=== PATIENT | male | born 1940 | race Caucasian/White ===

== ENCOUNTER 2017-07-14 20:32 | Inpatient (IN) | payer MEDICARE, MEDICAID ==
[~2017-07-14] VITALS: Ht 182.9 cm; Wt 81.6 kg
[~2017-07-14 20:32] MED LIST: ACETAMINOPHEN650 M2 ORAL; ARICEPT5 MG ORAL; ASCORBIC ACID500 MG ORAL; ATARAX25 MG ORAL; ATORVASTATIN CA10 MG ORAL; BISACODYL5 MG RECTAL; CLOBETASOL EMOL15 GM TP; COLACE250 MG ORAL; DEMECLOCYCLINE300 MG PO; DEPAKOTE ER250 MG ORAL; DEPAKOTE ER500 MG ORAL; DOCUSATE SODIU100 MG ORAL; ELIMITE 5% CREA60 GM TOPIC; HIBICLENS118 ML TP; HYDROCHLOROTH12.5 M2 ORAL; IBUPROFEN600 MG ORAL; KLONOPIN1 MG ORAL; MILK OF MA400 MG/51 ORAL; MULTIVITAMINS1 EAC2 ORAL; MULTIVITAMINS1 EAC8 ORAL; MYLANTA30 M1 GT; OS-CAL1250 MG GT; RESTORIL7.5 MG ORAL; SERTRALINE HCL25 MG ORAL; STROMECTOL3 MG ORAL; SYNTHROID50 MCG ORAL; VENTOLIN HFA18 GM INH; VITAMIN C500 M1 ORAL
[2017-07-14 20:35] VITALS: BP 112/62
[2017-07-14] MEDS ORDERED: Vancomycin 1 GM in NS 275 ML IV ONE (21:00)
[2017-07-14] MEDS ORDERED: LORazepam Inj 2mg/ml 1ml IV PRN (21:30)
[2017-07-14] MEDS ORDERED: Miralax 17gm pkt ORAL PRN (21:30)
[2017-07-14] MEDS ORDERED: Mylanta II UD 30ml ORAL PRN (21:30)
[2017-07-14] MEDS ORDERED: Zolpidem 5mg tab ORAL PRN (21:30)
[2017-07-14] MEDS ORDERED: Vancomycin 1gm inj IVPB ONE (21:34)
[2017-07-14 21:43] LABS: BASOPHILS % (AUTO) 0.9 % (0.0-2.0); EOSINOPHILS % (AUTO) 2.2 % (0.0-3.0); LYMPHOCYTES % (AUTO) 16.3 % (20.0-45.0); MEAN CORPUSCULAR HGB CONC 33.4 G/DL (32.0-36.0); MEAN CORPUSCULAR VOLUME 90 FL (80-99); MEAN PLATELET VOLUME 5.9 FL (6.5-10.1); MONOCYTES % (AUTO) 10.6 % (1.0-10.0); PLATELET COUNT 275 K/UL (150-450); RED BLOOD COUNT 4.59 M/UL (4.70-6.10); RED CELL DISTRIBUTION WIDTH 13.1 % (11.6-14.8); WHITE BLOOD COUNT 8.5 K/UL (4.8-10.8)
[2017-07-14] MEDS ORDERED: VITAMIN C250 MG ORAL (21:44)
[2017-07-14] MEDS ORDERED: VITAMIN C500 M1 ORAL (21:44)
[2017-07-14] MEDS ORDERED: RISPERDAL1 MG PO (21:44)
[2017-07-14 21:49] LABS: ANION GAP 9 mmol/L (5-15); CALCIUM 8.7 MG/DL (8.5-10.1); CARBON DIOXIDE 25 MMOL/L (21-32); CHLORIDE 104 MMOL/L (98-107); POTASSIUM 3.9 MMOL/L (3.5-5.1); SODIUM 138 MMOL/L (136-145)
[2017-07-14 21:54] LABS: ALANINE AMINOTRANSFERASE 32 U/L (12-78); ALBUMIN/GLOBULIN RATIO 0.9 (1.0-2.7); ASPARTATE AMINO TRANSFERASE 23 U/L (15-37); TOTAL PROTEIN 6.7 G/DL (6.4-8.2)
[2017-07-14 22:35] VITALS: BP 115/60
--- NOTE | 2017-07-14 23:17 | Emergency Room Report ---
History of Present Illness General Chief Complaint: Wound Recheck/Suture Removal Source: Patient, PMD Present Illness HPI Patient sent in from a group home facility. The patient has a history of a nonhealing surgical wound on the left pelvis. He was sent him by the primary care physician for concerned that this needs a surgical revision. The patient does have ongoing pain there. There is no fever or chills. There is no nausea or vomiting. There is no chest pain or shortness of breath. There are no other complaints. Allergies: Coded Allergies: DIVALPROEX SODIUM (Verified Allergy, Severe, rash , 05/30/14) all over body ACETAMINOPHEN (Unverified Allergy, Unknown, 07/14/17) ASPIRIN (Unverified Allergy, Unknown, 07/14/17) HALOPERIDOL (Unverified Allergy, Unknown, 07/14/17) Patient History Past Medical History: see triage record, HTN, psych hx - schizophrenia, other - Hypothyroid Social History: Denies: smoking, alcohol use, drug use Reviewed Nursing Documentation: PMH: Agreed, PSxH: Agreed Nursing Documentation-PMH Hx Pacemaker: No Hx Asthma: No Hx COPD: Yes Hx Diabetes: No Hx Cancer: No Hx Gastrointestinal Problems: No Hx Dialysis: No Hx Neurological Problems: No Hx Cerebrovascular Accident: No Hx Dementia: Yes Hx Seizures: No Review of Systems All Other Systems: negative except mentioned in HPI Physical Exam Vital Signs Date Time Temp Pulse Resp B/P (MAP) Pulse Ox O2 Delivery O2 Flow Rate FiO2 07/14/17 20:26 98.2 72 16 112/62 98 Room Air Sp02 EP Interpretation: reviewed, normal General Appearance: no apparent distress, alert, GCS 15, non-toxic Head: normocephalic, atraumatic Eyes: bilateral eye normal inspection, bilateral eye PERRL ENT: hearing grossly normal, normal pharynx, no angioedema, normal voice Neck: full range of motion, supple/symm/no masses Respiratory: chest non-tender, lungs clear, normal breath sounds, speaking full sentences Cardiovascular #1: regular rate, rhythm, no edema Gastrointestinal: normal bowel sounds, non tender, soft, non-distended, no guarding, no rebound, other - Non-healing chronic wound. Rectal: deferred Musculoskeletal: back normal, gait/station normal, normal range of motion, non- tender Neurologic: alert, responsive, motor strength/tone normal, sensory intact, speech normal Psychiatric: mood/affect normal, no suicidal/homicidal ideation Skin: warm/dry, other - See GI exam Medical Decision Making Diagnostic Impression: Primary Impression: Non-healing wound ER Course This patient presents with a nonhealing post surgical wound. He is here for a surgical consultation and revision. He was given broad-spectrum antibiotics in the emergency department. He was admitted to the medical surgical floor. Laboratory Tests Test 07/14/17 21:10 White Blood Count 8.5 K/UL (4.8-10.8) Red Blood Count 4.59 M/UL (4.70-6.10) L Hemoglobin 13.8 G/DL (14.2-18.0) L Hematocrit 41.1 % (42.0-52.0) L Mean Corpuscular Volume 90 FL (80-99) Mean Corpuscular Hemoglobin 30.0 PG (27.0-31.0) Mean Corpuscular Hemoglobin Concent 33.4 G/DL (32.0-36.0) Red Cell Distribution Width 13.1 % (11.6-14.8) Platelet Count 275 K/UL (150-450) Mean Platelet Volume 5.9 FL (6.5-10.1) L Neutrophils (%) (Auto) 70.0 % (45.0-75.0) Lymphocytes (%) (Auto) 16.3 % (20.0-45.0) L Monocytes (%) (Auto) 10.6 % (1.0-10.0) H Eosinophils (%) (Auto) 2.2 % (0.0-3.0) Basophils (%) (Auto) 0.9 % (0.0-2.0) Sodium Level 138 MMOL/L (136-145) Potassium Level 3.9 MMOL/L (3.5-5.1) Chloride Level 104 MMOL/L (98-107) Carbon Dioxide Level 25 MMOL/L (21-32) Anion Gap 9 mmol/L (5-15) Blood Urea Nitrogen 18 mg/dL (7-18) Creatinine 1.0 MG/DL (0.55-1.30) Estimate Glomerular Filtration Rate mL/min (>60) Glucose Level 119 MG/DL (74-106) H Lactic Acid Level 1.20 mmol/L (0.66-2.22) Calcium Level 8.7 MG/DL (8.5-10.1) Total Bilirubin 0.2 MG/DL (0.2-1.0) Aspartate Amino Transferase (AST) 23 U/L (15-37) Alanine Aminotransferase (ALT) 32 U/L (12-78) Alkaline Phosphatase 118 U/L (46-116) H Total Creatine Kinase 182 U/L (26-308) Total Protein 6.7 G/DL (6.4-8.2) Albumin 3.2 G/DL (3.4-5.0) L Globulin 3.5 g/dL Albumin/Globulin Ratio 0.9 (1.0-2.7) L Rhythm Strip Diag. Results EP Interpretation: yes Rate: 70's Rhythm: NSR, no PVC's, no ectopy Last Vital Signs Date Time Temp Pulse Resp B/P (MAP) Pulse Ox O2 Delivery O2 Flow Rate FiO2 07/14/17 22:35 98.2 78 18 115/60 98 Room Air Disposition: ADMITTED INPATIENT Condition: Stable Referrals: LENA WHEELER (PCP) JACIEL LEIGH D.O. Jul 14, 2017 23:17
[2017-07-14 23:56] VITALS: BP 129/70
[2017-07-15 04:00] VITALS: BP 112/74
[2017-07-15 07:11] LABS: BASOPHILS % (AUTO) 1.1 % (0.0-2.0); EOSINOPHILS % (AUTO) 1.7 % (0.0-3.0); LYMPHOCYTES % (AUTO) 11.2 % (20.0-45.0); MEAN CORPUSCULAR HEMOGLOBIN 30.4 PG (27.0-31.0); MEAN CORPUSCULAR HGB CONC 33.4 G/DL (32.0-36.0); MEAN CORPUSCULAR VOLUME 91 FL (80-99); MEAN PLATELET VOLUME 5.8 FL (6.5-10.1); MONOCYTES % (AUTO) 8.1 % (1.0-10.0); NEUTROPHILS % (AUTO) 77.9 % (45.0-75.0); PLATELET COUNT 264 K/UL (150-450); RED BLOOD COUNT 4.51 M/UL (4.70-6.10); RED CELL DISTRIBUTION WIDTH 13.5 % (11.6-14.8); WHITE BLOOD COUNT 9.3 K/UL (4.8-10.8)
[2017-07-15 08:06] LABS: ALANINE AMINOTRANSFERASE 33 U/L (12-78); ALBUMIN/GLOBULIN RATIO 0.9 (1.0-2.7); ANION GAP 7 mmol/L (5-15); ASPARTATE AMINO TRANSFERASE 23 U/L (15-37); CALCIUM 8.7 MG/DL (8.5-10.1); CARBON DIOXIDE 27 MMOL/L (21-32); CHLORIDE 104 MMOL/L (98-107); CHOLESTEROL 167 MG/DL (< 200); CHOLESTEROL/HDL RATIO 3.7 (3.3-4.4); CREATININE 0.9 MG/DL (0.55-1.30); POTASSIUM 3.9 MMOL/L (3.5-5.1); SODIUM 138 MMOL/L (136-145); TOTAL PROTEIN 6.7 G/DL (6.4-8.2)
[2017-07-15 08:15] VITALS: BP 121/71
[2017-07-15] MEDS: Sertraline 50mg tab ORAL SCH (08:15)
[2017-07-15] MEDS: oxyCODONE 5mg IR tab ORAL PRN ×2 (09:09→20:49)
[2017-07-15 12:12] VITALS: BP 129/73
[2017-07-15 16:00] VITALS: BP 121/75
--- NOTE | 2017-07-15 16:43 | Consultation ---
History of Present Illness General Date patient seen: Jul 15, 2017 Chief Complaint: Wound Recheck/Suture Removal Referring physician: Dr. Miller Reason for Consultation: Inpatient manageemnt Present Illness HPI 77 year old male with hx of COPD, Dementia, sent in from a care home facility for evaluation of a nonhealing surgical wound on the left groin. He had inaguinal hernia repair many years ago and the surgical site opened up a few months ago and the wound is not healing . Pt is admitted for surgical evaluation and possible closure of the wound. Allergies: Coded Allergies: DIVALPROEX SODIUM (Verified Allergy, Severe, rash , 05/30/14) all over body ACETAMINOPHEN (Unverified Allergy, Unknown, 07/14/17) ASPIRIN (Unverified Allergy, Unknown, 07/14/17) HALOPERIDOL (Unverified Allergy, Unknown, 07/14/17) Medication History Scheduled Al Hydroxide/mg Hydroxide (Mag-Al Liquid), 30 ML GT EVERY 4 HOURS, (Reported) Ascorbic Acid* (Vitamin C*), 500 MG ORAL DAILY, (Reported) Ascorbic Acid* (Vitamin C*), 250 MG ORAL DAILY, (Reported) Ascorbic Acid* (Vitamin C*), 500 MG ORAL DAILY, (Reported) Atorvastatin Calcium* (Lipitor*), 10 MG ORAL BEDTIME, (Reported) Docusate Sodium* (Docusate Sodium*), 100 MG ORAL BID, (Reported) Donepezil Hcl* (Aricept*), 5 MG ORAL BEDTIME, (Reported) Levothyroxine Sodium (Synthroid), 50 MCG ORAL DAILY, (Reported) Magnesium Hydroxide* (Milk Of Magnesia*), 30 ML ORAL DAILY, (Reported) Multivitamins* (Multivitamins*), 1 TAB ORAL DAILY, (Reported) Risperidone* (Risperdal*), 1 MG PO BID, (Reported) Sertraline Hcl* (Sertraline Hcl*), 25 MG ORAL DAILY, (Reported) Scheduled PRN Acetaminophen (Acetaminophen 8 Hour), 650 MG ORAL EVERY 4 HOURS PRN for Mild Pain/Temp > 100.5, (Reported) Bisacodyl* (Dulcolax*), 10 MG RECTAL DAILY PRN for Constipation, (Reported) Hydroxyzine HCl (Hydroxyzine HCl), 25 MG ORAL DAILY PRN for Itching, (Reported) Patient History Healthcare decision maker Resuscitation status Full Code Advanced Directive on File Past Medical/Surgical History Past Medical/Surgical History: (1) Fatty liver (2) Anemia (3) Hypothyroidism (4) Psychiatric disorder Review of Systems All Other Systems: negative except mentioned in HPI Physical Exam General Appearance: WD/WN Lines, tubes and drains: peripheral HEENT: normocephalic Neck: non-tender, normal alignment Respiratory/Chest: chest wall non-tender, lungs clear Cardiovascular/Chest: normal peripheral pulses, normal rate Abdomen: normal bowel sounds Genitourinary/Rectal: normal genital exam Extremities: normal range of motion Skin Exam: normal pigmentation Last 24 Hour Vital Signs Date Time Temp Pulse Resp B/P (MAP) Pulse Ox O2 Delivery O2 Flow Rate FiO2 07/15/17 16:00 97.7 68 18 121/75 97 Room Air 07/15/17 12:12 97.4 59 20 129/73 97 Room Air 07/15/17 08:15 98.1 73 20 121/71 97 Room Air 07/15/17 04:00 Room Air 07/15/17 04:00 97.0 65 18 112/74 98 Room Air 07/14/17 23:56 98.2 88 15 129/70 99 Room Air 07/14/17 23:56 98.2 88 15 129/70 99 Room Air 07/14/17 22:35 98.2 78 18 115/60 98 Room Air 07/14/17 20:35 98.2 72 19 112/62 99 Room Air 07/14/17 20:26 98.2 72 16 112/62 98 Room Air Intake and Output 07/15/17 07/16/17 19:00 07:00 Intake Total 480 ml Output Total 300 ml Balance 180 ml Intake Oral 480 ml Output Urine Total 300 ml # Voids 1 Laboratory Tests Test 07/14/17 21:10 07/15/17 04:30 White Blood Count 8.5 K/UL (4.8-10.8) 9.3 K/UL (4.8-10.8) Red Blood Count 4.59 M/UL (4.70-6.10) L 4.51 M/UL (4.70-6.10) L Hemoglobin 13.8 G/DL (14.2-18.0) L 13.7 G/DL (14.2-18.0) L Hematocrit 41.1 % (42.0-52.0) L 41.0 % (42.0-52.0) L Mean Corpuscular Volume 90 FL (80-99) 91 FL (80-99) Mean Corpuscular Hemoglobin 30.0 PG (27.0-31.0) 30.4 PG (27.0-31.0) Mean Corpuscular Hemoglobin Concent 33.4 G/DL (32.0-36.0) 33.4 G/DL (32.0-36.0) Red Cell Distribution Width 13.1 % (11.6-14.8) 13.5 % (11.6-14.8) Platelet Count 275 K/UL (150-450) 264 K/UL (150-450) Mean Platelet Volume 5.9 FL (6.5-10.1) L 5.8 FL (6.5-10.1) L Neutrophils (%) (Auto) 70.0 % (45.0-75.0) 77.9 % (45.0-75.0) H Lymphocytes (%) (Auto) 16.3 % (20.0-45.0) L 11.2 % (20.0-45.0) L Monocytes (%) (Auto) 10.6 % (1.0-10.0) H 8.1 % (1.0-10.0) Eosinophils (%) (Auto) 2.2 % (0.0-3.0) 1.7 % (0.0-3.0) Basophils (%) (Auto) 0.9 % (0.0-2.0) 1.1 % (0.0-2.0) Sodium Level 138 MMOL/L (136-145) 138 MMOL/L (136-145) Potassium Level 3.9 MMOL/L (3.5-5.1) 3.9 MMOL/L (3.5-5.1) Chloride Level 104 MMOL/L (98-107) 104 MMOL/L (98-107) Carbon Dioxide Level 25 MMOL/L (21-32) 27 MMOL/L (21-32) Anion Gap 9 mmol/L (5-15) 7 mmol/L (5-15) Blood Urea Nitrogen 18 mg/dL (7-18) 15 mg/dL (7-18) Creatinine 1.0 MG/DL (0.55-1.30) 0.9 MG/DL (0.55-1.30) Estimat Glomerular Filtration Rate mL/min (>60) mL/min (>60) Glucose Level 119 MG/DL (74-106) H 98 MG/DL (74-106) Lactic Acid Level 1.20 mmol/L (0.66-2.22) Calcium Level 8.7 MG/DL (8.5-10.1) 8.7 MG/DL (8.5-10.1) Total Bilirubin 0.2 MG/DL (0.2-1.0) 0.4 MG/DL (0.2-1.0) Aspartate Amino Transf (AST/SGOT) 23 U/L (15-37) 23 U/L (15-37) Alanine Aminotransferase (ALT/SGPT) 32 U/L (12-78) 33 U/L (12-78) Alkaline Phosphatase 118 U/L (46-116) H 117 U/L (46-116) H Total Creatine Kinase 182 U/L (26-308) Total Protein 6.7 G/DL (6.4-8.2) 6.7 G/DL (6.4-8.2) Albumin 3.2 G/DL (3.4-5.0) L 3.2 G/DL (3.4-5.0) L Globulin 3.5 g/dL 3.5 g/dL Albumin/Globulin Ratio 0.9 (1.0-2.7) L 0.9 (1.0-2.7) L Triglycerides Level 92 MG/DL (30-150) Cholesterol Level 167 MG/DL (< 200) LDL Cholesterol 108 mg/dL (<100) H HDL Cholesterol 45 MG/DL (40-60) Cholesterol/HDL Ratio 3.7 (3.3-4.4) Thyroid Stimulating Hormone (TSH) 3.780 uiU/mL (0.358-3.740) Height (Feet): 6 Height (Inches): 0.00 Weight (Pounds): 180 Medications Current Medications Medications (Trade) Dose Ordered Sig/Darren Route PRN Reason Start Time Stop Time Status Last Admin Dose Admin Al Hydroxide/Mg Hydroxide (Mylanta II) 30 ml Q6H PRN ORAL dyspepsia 07/14/17 21:30 08/13/17 21:29 Atorvastatin Calcium (Lipitor) 10 mg BEDTIME ORAL 07/15/17 21:00 08/14/17 20:59 Dextrose (Dextrose 50%) STAT PRN IV Hypoglycemia 07/14/17 21:30 08/13/17 21:29 Donepezil HCl (Aricept) 5 mg BEDTIME ORAL 07/15/17 21:00 08/14/17 20:59 Levothyroxine Sodium (Synthroid) 50 mcg ACBREAKFAST ORAL 07/15/17 06:30 08/14/17 06:29 07/15/17 05:48 Lorazepam (Ativan 2mg/ml 1ml) 0.5 mg Q4H PRN IV For Anxiety 07/14/17 21:30 07/21/17 21:29 Morphine Sulfate (Morphine Sulfate) 1 mg Q4H PRN IVP For Pain 07/14/17 21:30 07/21/17 21:29 Ondansetron HCl (Zofran) 4 mg Q6H PRN IVP Nausea & Vomiting 07/14/17 21:30 08/13/17 21:29 Oxycodone HCl (Roxicodone) 5 mg EVERY 6 HOURS PRN ORAL Moderate Pain (Pain Scale 4-6) 07/15/17 07:00 07/22/17 06:59 07/15/17 09:09 Polyethylene Glycol (Miralax) 17 gm HSPRN PRN ORAL Constipation 07/14/17 21:30 08/13/17 21:29 Sertraline HCl (Zoloft) 25 mg DAILY ORAL 07/15/17 09:00 08/14/17 08:59 07/15/17 08:15 Vancomycin HCl (Vanco rx to dose) 1 ea DAILY PRN MISC Per rx protocol 07/15/17 13:30 08/14/17 13:29 Vancomycin HCl/ Dextrose 250 ml @ 166.667 mls/hr Q12H IVPB 07/15/17 15:00 07/20/17 14:59 Zolpidem Tartrate (Ambien) 5 mg HSPRN PRN ORAL Insomnia 07/14/17 21:30 07/21/17 21:29 Assessment/Plan Problem List: (1) Cellulitis ICD Codes: L03.90 - Cellulitis, unspecified SNOMED: 878617645 (2) Anemia ICD Codes: D64.9 - Anemia SNOMED: 350697282 (3) Non-healing wound SNOMED: 559087086 (4) Psychiatric disorder ICD Codes: F99 - Psychiatric disorder SNOMED: 28713404 (5) Hypothyroidism ICD Codes: E03.9 - Hypothyroidism SNOMED: 96625660 Assessment/Plan wound care Iv abx surgical evaluation, Dr. Washburn called dvt prophylaxis ZACKARY SÁNCHEZ Jul 15, 2017 16:43
--- NOTE | 2017-07-15 16:45 | Cardiology Report ---
APPROVED REPORT EKG Measurement Heart [id number] [place] [id number] Normal sinus rhythm Normal ECG
[2017-07-15] MEDS: Vancomycin 1250mg/D5W 250ml IVPB SCH (17:57)
--- NOTE | 2017-07-15 17:59 | General Progress Note ---
Progress Note Progress Note Surgery: full note to follow. 77M with multiple medical comorbidities presented with worsening left inguinal wound with drainage and cellulitis. patient had left inguinal hernia repair with mesh 1 year ago. 3 months ago noted opening of the surgical wound and drainage. since has been monitored and feels as if it is getting deeper even though the skin site is same size if not smaller. drainage constant requiring dressings. has surrounding cellulitis. states tender and intermittent discomfort. given above I am concerned that maybe he has an underlying infected mesh. he has okay nutrition and should have a simple surgical wound. this seems more complex and likely something underlying such as infected mesh. will order CT pelvis with IV contrast to evaluate area and tissues surrounding mesh and defect. if only superficial and slow healing may just need a simple debridement and closure. if mesh is indeed infected will require more mesh excision and complex repair. thank you for this consult. will follow. Dorian Washburn Jul 15, 2017 17:59
--- NOTE | 2017-07-15 18:00 | History and Physical Report ---
DATE OF ADMISSION: 07/14/2017 TIME SEEN: 07/15/2017, approximate time is 1 p.m. ATTENDING PHYSICIAN: Anthony Miller D.O. CONSULTANTS: 1. Merary Partida M.D. 2. Dr. Carlisle. 3. Dianna Macedo M.D. 4. We will obtain a surgery consult shortly. BRIEF HISTORY: This is a 77-year-old male from [facility], who presented with history of decubitus in the left inguinal area. The patient was diagnosed with the above, admitted to medical floor for further treatment. Currently calm in bed. No complaint. REVIEW OF SYSTEMS: No chest pain. No shortness of breath. No nausea, vomiting, or diarrhea. PAST MEDICAL HISTORY: Hypertension, anxiety, dementia, COPD, and decubitus ulcer. PAST SURGERY HISTORY: Left inguinal hernia. ALLERGIES: According to his chart, Tylenol, Haldol, aspirin and divalproex. MEDICATIONS: Include Lipitor, Aricept, Zoloft, oxycodone, Synthroid, morphine, MiraLAX, Zofran, Ambien, Advair, and Mylanta. SOCIAL HISTORY: Positive smoking. No alcohol. No intravenous drug abuse. FAMILY HISTORY: Noncontributory. PHYSICAL EXAMINATION: GENERAL: Calm in bed, oriented x2, in no acute distress. VITAL SIGNS: Show temperature is 97, pulse 59, respirations 20, and blood pressure 129/73. CARDIOVASCULAR: No murmur. LUNGS: Distant and clear. ABDOMEN: Bowel sounds positive. Nontender and nondistended. EXTREMITIES: No cyanosis, clubbing, or edema. Left inguinal hernia dressing clean and dry, slightly swollen. LABORATORY DATA: Labs at this time show hemoglobin 13.7, otherwise, CBC is normal. BMP shows alkaline phosphatase of 117. Albumin 3.2. TSH is 3.78. ASSESSMENT: 1. Decubitus ulcer, left inguinal area. 2. Chronic obstructive pulmonary disease. 3. Hypertension. 4. Anxiety. 5. Dementia. 6. Malnutrition. 7. Hypothyroid. PLAN: 1. Continue premedications. 2. Wound care. 3. Antibiotics per Infectious Disease. 4. OT, PT, and dietary evaluation. 5. CBC and BMP in the morning. 6. Dr. Partiad, Dr. Carlisle, Dr. Macedo, surgeon, and Dr. Amaya to consult. We will continue to follow this patient. Anthony Miller D.O. DR: LORENA JOB#: [id number] CC:
--- NOTE | 2017-07-15 18:30 | Consultation ---
DATE OF CONSULTATION: 07/15/2017 INFECTIOUS DISEASE CONSULTATION CONSULTING PHYSICIAN: Yan Ray M.D. PRIMARY ATTENDING PHYSICIAN: Anthony Miller D.O. REASON FOR CONSULT: Left inguinal wound infection. HISTORY OF PRESENT ILLNESS: This is a 77-year-old white male, who is a senior living resident admitted yesterday with nonhealing wound in the left inguinal area. The patient states that he had inguinal hernia long time ago. This year, there was something happened and the patient had reoperation. After that, he has some abscess or sinus tract in the left inguinal area that is nonhealing. Sometimes, there is discharge from the wound. The patient has no systemic symptoms like fever or chills. Has pain in the area. PAST MEDICAL HISTORY: Significant for COPD, Alzheimer dementia, hypothyroidism, diverticulosis, and compression fracture of L1 and L5. ALLERGIES: Allergic to aspirin, Tylenol, haloperidol, and valproic acid. MEDICATIONS: Atorvastatin, Aricept, Zoloft, oxycodone, levothyroxine, morphine, MiraLAX, got a dose of vancomycin in the ER, Ambien, and lorazepam. SOCIAL HISTORY: A senior living resident. Smoker, smokes 6 cigarettes a day. No history of alcohol or drug abuse recently. REVIEW OF SYSTEMS: No fever. No chills. No nausea. No vomiting. No diarrhea. Pain in the left inguinal area. Occasional discharge from the wound that sometimes is red. PHYSICAL EXAMINATION: VITAL SIGNS: Temperature 97.4, pulse 59, and blood pressure 129/73. GENERAL APPEARANCE: No acute distress. Awake, alert, and verbal. HEAD AND NECK: Has dentures. No oral lesion. HEART: S1 and S2 regular. LUNGS: Clear. ABDOMEN: Soft and nontender. There is a small wound in the left inguinal area. EXTREMITIES: Have no edema. LABORATORY DATA: WBC 9.3, hemoglobin 13.7, hematocrit 41, and platelets 264. Sodium 138, potassium 3.9, chloride 104, bicarbonate 27, BUN 15, creatinine 0.9, and glucose 98. Albumin is 3.2. IMPRESSION: Left inguinal area nonhealing wound, likely infected, may have sinus tract. The patient has chronic obstructive pulmonary disease, Alzheimer dementia, schizophrenia, and hypothyroidism. RECOMMENDATION: We will start the patient on vancomycin. We will follow up the cultures including wound culture. He needs to be evaluated by the surgeon. At the end of my exam, I thank Dr. Anthony Miller for involving me in the care of this patient. Yan Ray M.D. DR: YENI JOB#: [id number] CC:
[2017-07-15 19:55] VITALS: BP 123/68
[2017-07-15] MEDS: Donepezil 5mg Tab ORAL SCH (20:49)
[2017-07-16] VITALS: BP 116/76
[2017-07-16] MEDS: oxyCODONE 5mg IR tab ORAL PRN ×2 (02:39→10:10)
[2017-07-16] MEDS: Vancomycin 1250mg/D5W 250ml IVPB SCH ×2 (02:39→15:22)
[2017-07-16 04:00] VITALS: BP 127/75
[2017-07-16 07:06] LABS: BASOPHILS % (AUTO) 0.7 % (0.0-2.0); EOSINOPHILS % (AUTO) 2.1 % (0.0-3.0); MEAN CORPUSCULAR HEMOGLOBIN 30.3 PG (27.0-31.0); MEAN CORPUSCULAR HGB CONC 33.7 G/DL (32.0-36.0); MEAN CORPUSCULAR VOLUME 90 FL (80-99); MEAN PLATELET VOLUME 5.8 FL (6.5-10.1); MONOCYTES % (AUTO) 9.7 % (1.0-10.0); NEUTROPHILS % (AUTO) 66.5 % (45.0-75.0); PLATELET COUNT 251 K/UL (150-450); RED BLOOD COUNT 4.59 M/UL (4.70-6.10); RED CELL DISTRIBUTION WIDTH 13.5 % (11.6-14.8); WHITE BLOOD COUNT 7.8 K/UL (4.8-10.8)
[2017-07-16 08:31] VITALS: BP 135/76
--- NOTE | 2017-07-16 08:45 | Consultation ---
DATE OF CONSULTATION: 07/16/2017 HISTORY OF PRESENT ILLNESS: This is a 77-year-old male patient. He has a history of cellulitis and was admitted to [facility]. Reason for his admission is again this patient came in for cellulitis, but he also has a psychiatric history. Currently, he shelter. He is on a psychotropic medication regimen of Risperdal 1 mg p.o. b.i.d., Zoloft 25 mg daily, and Aricept 5 mg daily. assessed him at bedside. He states that he feels he is doing relatively well on that medication regimen. He has actually denied any suicidal or homicidal ideation, but he was over at [facility] and it was discovered that he had a problem in the left inguinal area. So, he came into the hospital also to get assessed for surgery. He understands that and he is able to make his own decisions. He seems to have capacity to make his own decisions at this time. MEDICAL HISTORY: Hypertension, COPD, decubitus ulcer, psychiatric history of paranoid schizophrenia, rule out dementia with psychosis and depression. ALLERGIES: Tylenol, Haldol, aspirin, and Depakote. SUBSTANCE ABUSE HISTORY: Denies drug and alcohol use. SOCIAL HISTORY: The patient lives in [facility]. Financially supported by [facility] and Medicare. MENTAL STATUS EXAMINATION: This is a 77-year-old male with psychomotor retardation. Mood is depressed. Affect guarded and restricted. Thought process is slightly disorganized, but denies any current suicidal or homicidal ideations. Insight and judgment is poor. DIAGNOSIS: Paranoid schizophrenia with acute exacerbation, rule out dementia with psychosis. PLAN: I am going to restart him on Risperdal 1 mg p.o. b.i.d. Continue Aricept 5 mg at bedtime, Zoloft 25 mg daily. He will continue to be followed by Psychiatry throughout his hospital course. Chart was reviewed and discussed with staff. The patient is seen and assessed at bedside. I would like to thank Dr. Anthony Miller for this interesting consultation. Dianna Macedo M.D. DR: KYLAH/JERARDO JOB#: [id number] CC:
[2017-07-16 08:59] LABS: ANION GAP 7 mmol/L (5-15); CALCIUM 8.7 MG/DL (8.5-10.1); CARBON DIOXIDE 26 MMOL/L (21-32); CHLORIDE 103 MMOL/L (98-107); CREATININE 0.9 MG/DL (0.55-1.30); SODIUM 136 MMOL/L (136-145)
[2017-07-16] MEDS: Sertraline 50mg tab ORAL SCH (10:08)
--- NOTE | 2017-07-16 10:46 | Wound Care Consultation ---
Wound Assessment Wound Assessment : Wound Number: 1 Wound Present on Admission: Yes New Wound: No Status Change of Wound: No Wound Location Body Site Modif: right, upper, anterior Wound Location Body Site: thigh Wound Type: scab - dry Charo Test: Does not Charo Wound Length: 1.0 Wound Width: 1.0 Percent of Wound Bed Yellow/Wh: 100 - dry Wound Drainage Amount: None Wound Drainage Odor: None/Absent Tissue Surrounding Wound: Erythemic Wound General Appearance: Asymptomatic Wound Comment #1 Dry yellow scab on right upper anterior thigh #2 Left inguinal area with open draining wound Recommendation -Local wound care per protocol -Keep clean and dry -Turn and reposition -Optimize nutrition -Offload both heels -Heel protector on both heels -Assess and f/u accordingly for any changes KINGSTON GARCIA RN Jul 16, 2017 10:46
--- NOTE | 2017-07-16 12:06 | General Progress Note ---
Assessment/Plan Problem List: (1) Decubitus ulcer ICD Codes: L89.90 - Pressure ulcer of unspecified site, unspecified stage SNOMED: 333082770 (2) COPD (chronic obstructive pulmonary disease) ICD Codes: J44.9 - Chronic obstructive pulmonary disease, unspecified SNOMED: 72278694 (3) Anxiety ICD Codes: F41.9 - Anxiety disorder, unspecified SNOMED: 87207451 (4) Malnutrition ICD Codes: E46 - Unspecified protein-calorie malnutrition SNOMED: 07612705 (5) Hypothyroid ICD Codes: E03.9 - Hypothyroidism, unspecified SNOMED: 54415476 (6) Cellulitis ICD Codes: L03.90 - Cellulitis, unspecified SNOMED: 108092737 (7) Weakness ICD Codes: R53.1 - Weakness SNOMED: 58688607 (8) HTN (hypertension) ICD Codes: I10 - HTN (hypertension) SNOMED: 15780210 Status: stable, progressing, tolerating diet Assessment/Plan wound care abx sx f/u cbc bmp am Subjective Constitutional: Reports: weakness Allergies: Coded Allergies: DIVALPROEX SODIUM (Verified Allergy, Severe, rash , 05/30/14) all over body ACETAMINOPHEN (Unverified Allergy, Unknown, 07/14/17) ASPIRIN (Unverified Allergy, Unknown, 07/14/17) HALOPERIDOL (Unverified Allergy, Unknown, 07/14/17) All Systems: reviewed and negative except above Subjective sl left inguinal pian Objective Last 24 Hour Vital Signs Date Time Temp Pulse Resp B/P (MAP) Pulse Ox O2 Delivery O2 Flow Rate FiO2 07/16/17 08:31 97.8 61 20 135/76 97 07/16/17 04:00 98.4 62 18 127/75 96 Room Air 07/16/17 04:00 96 Room Air 07/16/17 00:00 96 Room Air 07/16/17 00:00 97.3 76 18 116/76 96 07/15/17 20:00 Room Air 07/15/17 19:55 97.5 69 20 123/68 97 Room Air 07/15/17 16:00 97.7 68 18 121/75 97 Room Air 07/15/17 12:12 97.4 59 20 129/73 97 Room Air Laboratory Tests 07/16/17 04:40: White Blood Count 7.8, Red Blood Count 4.59L, Hemoglobin 13.9L, Hematocrit 41.2L , Mean Corpuscular Volume 90, Mean Corpuscular Hemoglobin 30.3, Mean Corpuscular Hemoglobin Concent 33.7, Red Cell Distribution Width 13.5, Platelet Count 251, Mean Platelet Volume 5.8L, Neutrophils (%) (Auto) 66.5, Lymphocytes ( %) (Auto) 21.0, Monocytes (%) (Auto) 9.7, Eosinophils (%) (Auto) 2.1, Basophils (%) (Auto) 0.7, Sodium Level 136, Potassium Level 4.0, Chloride Level 103, Carbon Dioxide Level 26, Anion Gap 7, Blood Urea Nitrogen 14, Creatinine 0.9, Estimat Glomerular Filtration Rate , Glucose Level 92, Calcium Level 8.7 Height (Feet): 6 Height (Inches): 0.00 Weight (Pounds): 180 General Appearance: alert EENT: normal ENT inspection Neck: normal alignment Cardiovascular: normal peripheral pulses, normal rate, regular rhythm Respiratory/Chest: chest wall non-tender, lungs clear, normal breath sounds Abdomen: normal bowel sounds, non tender, soft Extremities: normal inspection Edema: no edema noted Arm (L), no edema noted Arm (R), no edema noted Leg (L), no edema noted Leg (R), no edema noted Pedal (L), no edema noted Pedal (R), no edema noted Generalized Neurologic: responsive, motor weakness Skin: normal pigmentation, warm/dry Objective l inguinal dressing c&d LENA WHEELER Jul 16, 2017 12:06
--- NOTE | 2017-07-16 12:08 | Diagnostic Imaging Report ---
Indication: Fluid drainage from left inguinal region, cellulitis, history of left inguinal hernia repair Technique: Precontrast spiral acquisitions obtained through the pelvis. IV administration nonionic contrast. Venous phase postcontrast spiral acquisition obtained through the pelvis Multiplanar reconstructions were generated. Total dose length product 1551 mGycm. CTDIvol(s) 8, 20, 20 mGy. Radiation dose was minimized using automated exposure control Comparison: 07/14/2016 Findings: Again demonstrated is a direct left inguinal hernia which contains a knuckle of colon at the junction of the descending and sigmoid colon. There is no evidence of obstruction or strangulation. More inferiorly, fat is seen within the hernia defect. Extending from the periphery of the inferior aspect of the hernia sac the skin surface is an irregular area of soft tissue density which measures approximately 3 cm AP by 3.6 cm transverse by 3 cm craniocaudad. There is definite contrast enhancement of this tissue. No central low-attenuation to suggest fluid collection or abscess is demonstrated. The area of abnormality is significantly smaller than on the prior study, at which time dimensions were approximately 5 x 5 x 5 cm. Apparent asymmetric thickening of the fascia peripheral to the hernia sac likely reflects a surgical mesh. Note that no actual mesh anchors are evident. This area appears unchanged from the previous exam and there is no evidence of surrounding inflammation. There is suggestion of a broad-based direct right inguinal hernia, as well. This contains only fat. There is colonic diverticulosis. No evidence of diverticulitis. The appendix is visualized and appears normal. Again demonstrated is a small fat-containing umbilical hernia. The bones demonstrate degenerative spondylosis changes. Impression: Direct left inguinal hernia containing a knuckle of colon, as described, also evident previously. There is overlying abnormal tissue within the subcutaneous fat extending to the skin surface which likely reflects a combination of cellulitis, scar tissue, and clinically described draining sinus tract. Note that the subcutaneous fat abnormality is significantly smaller, however, than on prior exam of one year ago. No specific findings to suggest mesh infection are evident. Direct fat-containing right inguinal hernia again demonstrated Colonic diverticulosis. No evidence of diverticulitis Findings discussed by phone with Dr. Washburn at the time of interpretation The CT scanner at [facility] is accredited by the [employer] and the scans are performed using protocols designed to limit radiation exposure to as low as reasonably achievable to attain images of sufficient resolution adequate for diagnostic evaluation.
--- NOTE | 2017-07-16 12:30 | Infectious Diseases Prog Note ---
Assessment/Plan Assessment/Plan A; Wound infection with staph aureus COPD Alzheimer disease Hypothyroidism P; continue IV Vancomycin will f/u cultures Subjective ROS Limited/Unobtainable: No Constitutional: Reports: no symptoms Respiratory: Reports: no symptoms Cardiovascular: Reports: no symptoms Gastrointestinal/Abdominal: Reports: no symptoms Genitourinary: Reports: no symptoms Musculoskeletal: Reports: pain, other - left inguinal area Allergies: Coded Allergies: DIVALPROEX SODIUM (Verified Allergy, Severe, rash , 05/30/14) all over body ACETAMINOPHEN (Unverified Allergy, Unknown, 07/14/17) ASPIRIN (Unverified Allergy, Unknown, 07/14/17) HALOPERIDOL (Unverified Allergy, Unknown, 07/14/17) Objective Vital Signs Last 24 Hour Vital Signs Date Time Temp Pulse Resp B/P (MAP) Pulse Ox O2 Delivery O2 Flow Rate FiO2 07/16/17 08:31 97.8 61 20 135/76 97 07/16/17 04:00 98.4 62 18 127/75 96 Room Air 07/16/17 04:00 96 Room Air 07/16/17 00:00 96 Room Air 07/16/17 00:00 97.3 76 18 116/76 96 07/15/17 20:00 Room Air 07/15/17 19:55 97.5 69 20 123/68 97 Room Air 07/15/17 16:00 97.7 68 18 121/75 97 Room Air Height (Feet): 6 Height (Inches): 0.00 Weight (Pounds): 180 General Appearance: no acute distress HEENT: mucous membranes moist Respiratory/Chest: lungs clear Cardiovascular: normal rate Abdomen: soft, non tender Extremities: no edema Skin: other - wound with drainage in left inguinal area Microbiology Date/Time Source Procedure Growth Status 07/14/17 21:15 Blood Blood Culture - Preliminary NO GROWTH AFTER 24 HOURS Resulted 07/14/17 21:00 Blood Blood Culture - Preliminary NO GROWTH AFTER 24 HOURS Resulted 07/15/17 00:10 Abdomen Gram Stain Pending Resulted 07/15/17 00:10 Wound Culture - Preliminary Staphylococcus Aureus Diphtheroids Resulted Laboratory Tests Test 07/16/17 04:40 White Blood Count 7.8 K/UL (4.8-10.8) Red Blood Count 4.59 M/UL (4.70-6.10) L Hemoglobin 13.9 G/DL (14.2-18.0) L Hematocrit 41.2 % (42.0-52.0) L Mean Corpuscular Volume 90 FL (80-99) Mean Corpuscular Hemoglobin 30.3 PG (27.0-31.0) Mean Corpuscular Hemoglobin Concent 33.7 G/DL (32.0-36.0) Red Cell Distribution Width 13.5 % (11.6-14.8) Platelet Count 251 K/UL (150-450) Mean Platelet Volume 5.8 FL (6.5-10.1) L Neutrophils (%) (Auto) 66.5 % (45.0-75.0) Lymphocytes (%) (Auto) 21.0 % (20.0-45.0) Monocytes (%) (Auto) 9.7 % (1.0-10.0) Eosinophils (%) (Auto) 2.1 % (0.0-3.0) Basophils (%) (Auto) 0.7 % (0.0-2.0) Sodium Level 136 MMOL/L (136-145) Potassium Level 4.0 MMOL/L (3.5-5.1) Chloride Level 103 MMOL/L (98-107) Carbon Dioxide Level 26 MMOL/L (21-32) Anion Gap 7 mmol/L (5-15) Blood Urea Nitrogen 14 mg/dL (7-18) Creatinine 0.9 MG/DL (0.55-1.30) Estimat Glomerular Filtration Rate mL/min (>60) Glucose Level 92 MG/DL (74-106) Calcium Level 8.7 MG/DL (8.5-10.1) Current Medications Medications (Trade) Dose Ordered Sig/Darren Route PRN Reason Start Time Stop Time Status Last Admin Dose Admin Al Hydroxide/Mg Hydroxide (Mylanta II) 30 ml Q6H PRN ORAL dyspepsia 07/14/17 21:30 08/13/17 21:29 Atorvastatin Calcium (Lipitor) 10 mg BEDTIME ORAL 07/15/17 21:00 08/14/17 20:59 07/15/17 20:49 Dextrose (Dextrose 50%) STAT PRN IV Hypoglycemia 07/14/17 21:30 08/13/17 21:29 Donepezil HCl (Aricept) 5 mg BEDTIME ORAL 07/15/17 21:00 08/14/17 20:59 07/15/17 20:49 Levothyroxine Sodium (Synthroid) 50 mcg ACBREAKFAST ORAL 07/15/17 06:30 08/14/17 06:29 07/16/17 05:52 Lorazepam (Ativan 2mg/ml 1ml) 0.5 mg Q4H PRN IV For Anxiety 07/14/17 21:30 07/21/17 21:29 Morphine Sulfate (Morphine Sulfate) 1 mg Q4H PRN IVP For Pain 07/14/17 21:30 07/21/17 21:29 Ondansetron HCl (Zofran) 4 mg Q6H PRN IVP Nausea & Vomiting 07/14/17 21:30 08/13/17 21:29 Oxycodone HCl (Roxicodone) 5 mg EVERY 6 HOURS PRN ORAL Moderate Pain (Pain Scale 4-6) 07/15/17 07:00 07/22/17 06:59 07/16/17 10:10 Polyethylene Glycol (Miralax) 17 gm HSPRN PRN ORAL Constipation 07/14/17 21:30 08/13/17 21:29 Risperidone (RisperDAL) 1 mg BID ORAL 07/16/17 09:00 08/15/17 08:59 07/16/17 10:08 Sertraline HCl (Zoloft) 25 mg DAILY ORAL 07/15/17 09:00 08/14/17 08:59 07/16/17 10:08 Vancomycin HCl (Vanco rx to dose) 1 ea DAILY PRN MISC Per rx protocol 07/15/17 13:30 08/14/17 13:29 Vancomycin HCl/ Dextrose 250 ml @ 166.667 mls/hr Q12H IVPB 07/15/17 15:00 07/20/17 14:59 07/16/17 02:39 Zolpidem Tartrate (Ambien) 5 mg HSPRN PRN ORAL Insomnia 07/14/17 21:30 07/21/17 21:29 RODNEY VENTURA Jul 16, 2017 12:30
[2017-07-16 12:32] VITALS: BP 125/71
--- NOTE | 2017-07-16 15:54 | Pulmonology Progress Note ---
Assessment/Plan Problems: (1) Cellulitis (2) Anemia (3) Non-healing wound (4) Psychiatric disorder (5) Hypothyroidism Assessment/Plan d/w surgeon, there is no need for surgical intervention now pt needs wound care symptomatic treatment all meds and notes reviewed dvt prophylaxis dc planning. Subjective ROS Limited/Unobtainable: No Interval Events: no new comfortable Allergies: Coded Allergies: DIVALPROEX SODIUM (Verified Allergy, Severe, rash , 05/30/14) all over body ACETAMINOPHEN (Unverified Allergy, Unknown, 07/14/17) ASPIRIN (Unverified Allergy, Unknown, 07/14/17) HALOPERIDOL (Unverified Allergy, Unknown, 07/14/17) Objective Last 24 Hour Vital Signs Date Time Temp Pulse Resp B/P (MAP) Pulse Ox O2 Delivery O2 Flow Rate FiO2 07/16/17 12:32 97.4 58 20 125/71 95 07/16/17 08:31 97.8 61 20 135/76 97 07/16/17 04:00 98.4 62 18 127/75 96 Room Air 07/16/17 04:00 96 Room Air 07/16/17 00:00 96 Room Air 07/16/17 00:00 97.3 76 18 116/76 96 07/15/17 20:00 Room Air 07/15/17 19:55 97.5 69 20 123/68 97 Room Air 07/15/17 16:00 97.7 68 18 121/75 97 Room Air Intake and Output 07/16/17 07/17/17 19:00 07:00 Intake Total 360 ml Output Total 400 ml Balance -40 ml Intake Oral 360 ml Output Urine Total 400 ml General Appearance: WD/WN HEENT: normocephalic, atraumatic Respiratory/Chest: chest wall non-tender, lungs clear Cardiovascular: normal peripheral pulses, normal rate Abdomen: soft, non tender, no organomegaly Genitourinary: normal external genitalia Extremities: no cyanosis Skin: no rash Microbiology Date/Time Source Procedure Growth Status 07/14/17 21:15 Blood Blood Culture - Preliminary NO GROWTH AFTER 24 HOURS Resulted 07/14/17 21:00 Blood Blood Culture - Preliminary NO GROWTH AFTER 24 HOURS Resulted 07/15/17 00:10 Abdomen Gram Stain Pending Resulted 07/15/17 00:10 Wound Culture - Preliminary Staphylococcus Aureus Diphtheroids Resulted Laboratory Tests 07/16/17 04:40: White Blood Count 7.8, Red Blood Count 4.59L, Hemoglobin 13.9L, Hematocrit 41.2L , Mean Corpuscular Volume 90, Mean Corpuscular Hemoglobin 30.3, Mean Corpuscular Hemoglobin Concent 33.7, Red Cell Distribution Width 13.5, Platelet Count 251, Mean Platelet Volume 5.8L, Neutrophils (%) (Auto) 66.5, Lymphocytes ( %) (Auto) 21.0, Monocytes (%) (Auto) 9.7, Eosinophils (%) (Auto) 2.1, Basophils (%) (Auto) 0.7, Sodium Level 136, Potassium Level 4.0, Chloride Level 103, Carbon Dioxide Level 26, Anion Gap 7, Blood Urea Nitrogen 14, Creatinine 0.9, Estimat Glomerular Filtration Rate , Glucose Level 92, Calcium Level 8.7 07/16/17 14:10: Random Vancomycin Level 11.4 Current Medications Medications (Trade) Dose Ordered Sig/Darren Route PRN Reason Start Time Stop Time Status Last Admin Dose Admin Al Hydroxide/Mg Hydroxide (Mylanta II) 30 ml Q6H PRN ORAL dyspepsia 07/14/17 21:30 08/13/17 21:29 Atorvastatin Calcium (Lipitor) 10 mg BEDTIME ORAL 07/15/17 21:00 08/14/17 20:59 07/15/17 20:49 Dextrose (Dextrose 50%) STAT PRN IV Hypoglycemia 07/14/17 21:30 08/13/17 21:29 Donepezil HCl (Aricept) 5 mg BEDTIME ORAL 07/15/17 21:00 08/14/17 20:59 07/15/17 20:49 Levothyroxine Sodium (Synthroid) 50 mcg ACBREAKFAST ORAL 07/15/17 06:30 08/14/17 06:29 07/16/17 05:52 Lorazepam (Ativan 2mg/ml 1ml) 0.5 mg Q4H PRN IV For Anxiety 07/14/17 21:30 07/21/17 21:29 Morphine Sulfate (Morphine Sulfate) 1 mg Q4H PRN IVP For Pain 07/14/17 21:30 07/21/17 21:29 Ondansetron HCl (Zofran) 4 mg Q6H PRN IVP Nausea & Vomiting 07/14/17 21:30 08/13/17 21:29 Oxycodone HCl (Roxicodone) 5 mg EVERY 6 HOURS PRN ORAL Moderate Pain (Pain Scale 4-6) 07/15/17 07:00 07/22/17 06:59 07/16/17 10:10 Polyethylene Glycol (Miralax) 17 gm HSPRN PRN ORAL Constipation 07/14/17 21:30 08/13/17 21:29 Risperidone (RisperDAL) 1 mg BID ORAL 07/16/17 09:00 08/15/17 08:59 07/16/17 10:08 Sertraline HCl (Zoloft) 25 mg DAILY ORAL 07/15/17 09:00 08/14/17 08:59 07/16/17 10:08 Vancomycin HCl (Vanco rx to dose) 1 ea DAILY PRN MISC Per rx protocol 07/15/17 13:30 08/14/17 13:29 Vancomycin HCl/ Dextrose 250 ml @ 166.667 mls/hr Q12H IVPB 07/15/17 15:00 07/20/17 14:59 07/16/17 15:22 Zolpidem Tartrate (Ambien) 5 mg HSPRN PRN ORAL Insomnia 07/14/17 21:30 07/21/17 21:29 ZACKARY SÁNCHEZ Jul 16, 2017 15:54
[2017-07-16 15:55] VITALS: BP 125/75
--- NOTE | 2017-07-16 16:50 | Consultation ---
History of Present Illness General Date patient seen: Jul 15, 2017 Chief Complaint: Wound Recheck/Suture Removal Referring physician: Dr. Miller Present Illness HPI 77M with multiple medical comorbidities presented with worsening left inguinal wound with drainage and cellulitis. patient had left inguinal hernia repair with mesh 1 year ago. 3 months ago noted opening of the surgical wound and drainage. since has been monitored and feels as if it is getting deeper even though the skin site is same size if not smaller. drainage constant requiring dressings. has surrounding cellulitis. states tender and intermittent discomfort. Records reviewed and CT from 1 year ago noted to have inflammation. Surgery called to evaluate slowly healing wound. Allergies: Coded Allergies: DIVALPROEX SODIUM (Verified Allergy, Severe, rash , 05/30/14) all over body ACETAMINOPHEN (Unverified Allergy, Unknown, 07/14/17) ASPIRIN (Unverified Allergy, Unknown, 07/14/17) HALOPERIDOL (Unverified Allergy, Unknown, 07/14/17) Medication History Scheduled Al Hydroxide/mg Hydroxide (Mag-Al Liquid), 30 ML GT EVERY 4 HOURS, (Reported) Ascorbic Acid* (Vitamin C*), 500 MG ORAL DAILY, (Reported) Ascorbic Acid* (Vitamin C*), 250 MG ORAL DAILY, (Reported) Ascorbic Acid* (Vitamin C*), 500 MG ORAL DAILY, (Reported) Atorvastatin Calcium* (Lipitor*), 10 MG ORAL BEDTIME, (Reported) Docusate Sodium* (Docusate Sodium*), 100 MG ORAL BID, (Reported) Donepezil Hcl* (Aricept*), 5 MG ORAL BEDTIME, (Reported) Levothyroxine Sodium (Synthroid), 50 MCG ORAL DAILY, (Reported) Magnesium Hydroxide* (Milk Of Magnesia*), 30 ML ORAL DAILY, (Reported) Multivitamins* (Multivitamins*), 1 TAB ORAL DAILY, (Reported) Risperidone* (Risperdal*), 1 MG PO BID, (Reported) Sertraline Hcl* (Sertraline Hcl*), 25 MG ORAL DAILY, (Reported) Scheduled PRN Acetaminophen (Acetaminophen 8 Hour), 650 MG ORAL EVERY 4 HOURS PRN for Mild Pain/Temp > 100.5, (Reported) Bisacodyl* (Dulcolax*), 10 MG RECTAL DAILY PRN for Constipation, (Reported) Hydroxyzine HCl (Hydroxyzine HCl), 25 MG ORAL DAILY PRN for Itching, (Reported) Patient History History Provided By: Patient, Medical Record Healthcare decision maker Resuscitation status Full Code Advanced Directive on File Past Medical/Surgical History Past Medical/Surgical History: (1) Leukocytosis (2) Acute dermatitis (3) Strain of hip (4) Contusion, hip (5) Fall (6) Strain of hip (7) Gait apraxia of elderly (8) fracture closed L pelvis and acetabulum (9) Unable to ambulate (10) Dermatitis (11) Eczema (12) Hyponatremia (13) Dehydration (14) Sepsis (15) Weakness (16) ARF (acute renal failure) (17) RASHAD (acute kidney injury) (18) N&V (nausea and vomiting) (19) Abdominal pain (20) Weight loss (21) Diarrhea (22) Leukocytosis (23) Hypokalemia (24) Acute renal failure (25) Hyperlipemia (26) Nausea & vomiting (27) Psychoses (28) Nausea & vomiting (29) Gastroenteritis (30) Elevated alkaline phosphatase level (31) Diverticulosis (32) UTI (urinary tract infection) (33) Hematuria (34) Fatty liver (35) Anemia (36) Hypothyroidism (37) Psychiatric disorder (38) Non-healing wound (39) Cellulitis (40) Decubitus ulcer (41) COPD (chronic obstructive pulmonary disease) (42) Anxiety (43) Cellulitis (44) Malnutrition (45) Weakness (46) HTN (hypertension) (47) Hypothyroid Review of Systems All Other Systems: negative except mentioned in HPI Physical Exam General Appearance: no apparent distress, alert Lines, tubes and drains: peripheral HEENT: mucous membranes moist Neck: normal inspection Respiratory/Chest: normal breath sounds, no respiratory distress, no accessory muscle use Cardiovascular/Chest: normal peripheral pulses, normal rate Abdomen: normal bowel sounds, non tender, soft, no organomegaly, no mass Genitourinary/Rectal: other - left inguinal region with prior surgical scar. scar well healed except for 1cm area in mid scar that is open with serous drainage. mild surrounding cellulitis. no purulent drainage. Extremities: normal inspection Skin Exam: warm/dry Neurologic: alert, responsive Last 24 Hour Vital Signs Date Time Temp Pulse Resp B/P (MAP) Pulse Ox O2 Delivery O2 Flow Rate FiO2 07/16/17 15:55 97.7 65 18 125/75 94 07/16/17 12:32 97.4 58 20 125/71 95 07/16/17 08:31 97.8 61 20 135/76 97 07/16/17 04:00 98.4 62 18 127/75 96 Room Air 07/16/17 04:00 96 Room Air 07/16/17 00:00 96 Room Air 07/16/17 00:00 97.3 76 18 116/76 96 07/15/17 20:00 Room Air 07/15/17 19:55 97.5 69 20 123/68 97 Room Air Intake and Output 07/16/17 07/17/17 19:00 07:00 Intake Total 360 ml Output Total 400 ml Balance -40 ml Intake Oral 360 ml Output Urine Total 400 ml Laboratory Tests Test 07/16/17 04:40 07/16/17 14:10 White Blood Count 7.8 K/UL (4.8-10.8) Red Blood Count 4.59 M/UL (4.70-6.10) L Hemoglobin 13.9 G/DL (14.2-18.0) L Hematocrit 41.2 % (42.0-52.0) L Mean Corpuscular Volume 90 FL (80-99) Mean Corpuscular Hemoglobin 30.3 PG (27.0-31.0) Mean Corpuscular Hemoglobin Concent 33.7 G/DL (32.0-36.0) Red Cell Distribution Width 13.5 % (11.6-14.8) Platelet Count 251 K/UL (150-450) Mean Platelet Volume 5.8 FL (6.5-10.1) L Neutrophils (%) (Auto) 66.5 % (45.0-75.0) Lymphocytes (%) (Auto) 21.0 % (20.0-45.0) Monocytes (%) (Auto) 9.7 % (1.0-10.0) Eosinophils (%) (Auto) 2.1 % (0.0-3.0) Basophils (%) (Auto) 0.7 % (0.0-2.0) Sodium Level 136 MMOL/L (136-145) Potassium Level 4.0 MMOL/L (3.5-5.1) Chloride Level 103 MMOL/L (98-107) Carbon Dioxide Level 26 MMOL/L (21-32) Anion Gap 7 mmol/L (5-15) Blood Urea Nitrogen 14 mg/dL (7-18) Creatinine 0.9 MG/DL (0.55-1.30) Estimat Glomerular Filtration Rate mL/min (>60) Glucose Level 92 MG/DL (74-106) Calcium Level 8.7 MG/DL (8.5-10.1) Random Vancomycin Level 11.4 ug/mL Height (Feet): 6 Height (Inches): 0.00 Weight (Pounds): 180 Medications Current Medications Medications (Trade) Dose Ordered Sig/Darren Route PRN Reason Start Time Stop Time Status Last Admin Dose Admin Al Hydroxide/Mg Hydroxide (Mylanta II) 30 ml Q6H PRN ORAL dyspepsia 07/14/17 21:30 08/13/17 21:29 Atorvastatin Calcium (Lipitor) 10 mg BEDTIME ORAL 07/15/17 21:00 08/14/17 20:59 07/15/17 20:49 Dextrose (Dextrose 50%) STAT PRN IV Hypoglycemia 07/14/17 21:30 08/13/17 21:29 Donepezil HCl (Aricept) 5 mg BEDTIME ORAL 07/15/17 21:00 08/14/17 20:59 07/15/17 20:49 Levothyroxine Sodium (Synthroid) 50 mcg ACBREAKFAST ORAL 07/15/17 06:30 08/14/17 06:29 07/16/17 05:52 Lorazepam (Ativan 2mg/ml 1ml) 0.5 mg Q4H PRN IV For Anxiety 07/14/17 21:30 07/21/17 21:29 Morphine Sulfate (Morphine Sulfate) 1 mg Q4H PRN IVP For Pain 07/14/17 21:30 07/21/17 21:29 Ondansetron HCl (Zofran) 4 mg Q6H PRN IVP Nausea & Vomiting 07/14/17 21:30 08/13/17 21:29 Oxycodone HCl (Roxicodone) 5 mg EVERY 6 HOURS PRN ORAL Moderate Pain (Pain Scale 4-6) 07/15/17 07:00 07/22/17 06:59 07/16/17 10:10 Polyethylene Glycol (Miralax) 17 gm HSPRN PRN ORAL Constipation 07/14/17 21:30 08/13/17 21:29 Risperidone (RisperDAL) 1 mg BID ORAL 07/16/17 09:00 08/15/17 08:59 07/16/17 10:08 Sertraline HCl (Zoloft) 25 mg DAILY ORAL 07/15/17 09:00 08/14/17 08:59 07/16/17 10:08 Vancomycin HCl (Vanco rx to dose) 1 ea DAILY PRN MISC Per rx protocol 07/15/17 13:30 08/14/17 13:29 Vancomycin HCl/ Dextrose 250 ml @ 166.667 mls/hr Q12H IVPB 07/15/17 15:00 07/20/17 14:59 07/16/17 15:22 Zolpidem Tartrate (Ambien) 5 mg HSPRN PRN ORAL Insomnia 07/14/17 21:30 07/21/17 21:29 Assessment/Plan Problem List: (1) Non-healing wound Assessment & Plan: 77 year old male with slowly healing left groin wound. had history of left inguinal hernia repair with mesh. some time after surgery had wound opening and drainage. since slowly healing. given above I am concerned that maybe he has an underlying infected mesh. he has okay nutrition and should have a simple surgical wound. this seems more complex and likely something underlying such as infected mesh. will order CT pelvis with IV contrast to evaluate area and tissues surrounding mesh and defect. if only superficial and slow healing may just need a simple debridement and closure. if mesh is indeed infected will require more mesh excision and complex repair. Reviewed CT scan with radiologist and compared to prior exam 1 year ago there is significant improvement. no findings to suggest mesh infection at this time. drainage sinus tract still present but smaller. no abscess. surrounding cellulitis. given this no acute surgical intervention necessary. continue with wound care and Abx for cellulitis. will monitor wound until closed and while in hospital. SNOMED: [id number] Status: stable Dorian Washburn Jul 16, 2017 16:50
--- NOTE | 2017-07-16 16:51 | General Progress Note ---
Progress Note Progress Note Surgery: no acute events. doing okay. no complaints. labs okay. exam stable. Reviewed CT scan with radiologist and compared to prior exam 1 year ago there is significant improvement. no findings to suggest mesh infection at this time. drainage sinus tract still present but smaller. no abscess. surrounding cellulitis. given this no acute surgical intervention necessary. continue with wound care and Abx for cellulitis. will monitor wound until closed and while in hospital. Dorian Washburn Jul 16, 2017 16:51
[2017-07-16 20:00] VITALS: BP 115/70
[2017-07-16] MEDS: Donepezil 5mg Tab ORAL SCH (22:01)
[2017-07-17] VITALS (7 sets, daily range): BP systolic 95–139; BP diastolic 55–79
[2017-07-17] MEDS: Vancomycin 1250mg/D5W 250ml IVPB SCH ×2 (02:32→15:17)
[2017-07-17 07:02] LABS: BASOPHILS % (AUTO) 0.8 % (0.0-2.0); EOSINOPHILS % (AUTO) 1.6 % (0.0-3.0); LYMPHOCYTES % (AUTO) 10.9 % (20.0-45.0); MEAN CORPUSCULAR HEMOGLOBIN 30.3 PG (27.0-31.0); MEAN CORPUSCULAR HGB CONC 33.9 G/DL (32.0-36.0); MEAN CORPUSCULAR VOLUME 89 FL (80-99); MONOCYTES % (AUTO) 8.9 % (1.0-10.0); NEUTROPHILS % (AUTO) 77.9 % (45.0-75.0); PLATELET COUNT 238 K/UL (150-450); RED BLOOD COUNT 4.48 M/UL (4.70-6.10); WHITE BLOOD COUNT 6.5 K/UL (4.8-10.8)
[2017-07-17 07:23] LABS: ANION GAP 9 mmol/L (5-15); CALCIUM 8.5 MG/DL (8.5-10.1); CARBON DIOXIDE 24 MMOL/L (21-32); CHLORIDE 102 MMOL/L (98-107); CREATININE 0.9 MG/DL (0.55-1.30); POTASSIUM 3.8 MMOL/L (3.5-5.1); SODIUM 135 MMOL/L (136-145)
--- NOTE | 2017-07-17 07:48 | Pulmonology Progress Note ---
Assessment/Plan Assessment/Plan ASSESSMENT infected wound with MRSA(non- healing) cellulitis with draining sinus tract s/p left inguinal hernia repair with mesh (1 year ago) COPD Alzheimer dementia hypothyroidism Direct fat containing R inguinal hernia paranoid schizophrenia with acute exacerbation PLAN OF CARE MS floor abx, ID follows, wound cx + Staph aureus, blood cx negative CT pelvis noted surgery follows per surgeon no acute surgical interventions needed at this time; continue with abx and wound care O2 HHN prn Continue Aricept TSH borderline elevated, continue same dose of Levothyroxine for now, check TSH in 1 month Psych follows, psych meds regimen optimized case discussed and evaluated by supervising physician Subjective Allergies: Coded Allergies: DIVALPROEX SODIUM (Verified Allergy, Severe, rash , 05/30/14) all over body ACETAMINOPHEN (Unverified Allergy, Unknown, 07/14/17) ASPIRIN (Unverified Allergy, Unknown, 07/14/17) HALOPERIDOL (Unverified Allergy, Unknown, 07/14/17) Subjective admits to mild discomfort at the wound site no fevers, no leukocytosis on IV abx Objective Last 24 Hour Vital Signs Date Time Temp Pulse Resp B/P (MAP) Pulse Ox O2 Delivery O2 Flow Rate FiO2 07/17/17 04:00 97.0 67 18 119/72 94 Room Air 07/17/17 00:00 98.2 69 20 129/77 95 Room Air 07/16/17 20:00 97.0 96 20 115/70 95 Room Air 07/16/17 15:55 97.7 65 18 125/75 94 07/16/17 12:32 97.4 58 20 125/71 95 07/16/17 08:31 97.8 61 20 135/76 97 General Appearance: no acute distress, other - awake, alert, HEENT: normocephalic, atraumatic Respiratory/Chest: lungs clear, no respiratory distress, no accessory muscle use Cardiovascular: normal peripheral pulses, normal rate, regular rhythm, no JVD Abdomen: normal bowel sounds, soft, non tender, non distended Extremities: no edema Skin: other - Left inguinal area with open draining wound Neurologic/Psychiatric: abnormal gait, alert, responsive Musculoskeletal: atrophy - BLE Microbiology Date/Time Source Procedure Growth Status 07/14/17 21:15 Blood Blood Culture - Preliminary NO GROWTH AFTER 48 HOURS Resulted 07/14/17 21:00 Blood Blood Culture - Preliminary NO GROWTH AFTER 48 HOURS Resulted 07/15/17 00:10 Abdomen Gram Stain Pending Resulted 07/15/17 00:10 Wound Culture - Preliminary Staphylococcus Aureus Diphtheroids Resulted 07/14/17 23:52 Rectum VRE Culture - Final NO VANCOMYCIN RESISTANT ENTEROCOCCUS ... Complete Laboratory Tests 07/16/17 14:10: Random Vancomycin Level 11.4 07/17/17 06:45: White Blood Count 6.5, Red Blood Count 4.48L, Hemoglobin 13.5L, Hematocrit 40.0L , Mean Corpuscular Volume 89, Mean Corpuscular Hemoglobin 30.3, Mean Corpuscular Hemoglobin Concent 33.9, Red Cell Distribution Width 13.0, Platelet Count 238, Mean Platelet Volume 6.0L, Neutrophils (%) (Auto) 77.9H, Lymphocytes (%) (Auto) 10.9L, Monocytes (%) (Auto) 8.9, Eosinophils (%) (Auto) 1.6, Basophils (%) (Auto) 0.8, Sodium Level 135L, Potassium Level 3.8, Chloride Level 102, Carbon Dioxide Level 24, Anion Gap 9, Blood Urea Nitrogen 14, Creatinine 0.9, Estimat Glomerular Filtration Rate , Glucose Level 125H, Calcium Level 8.5 Current Medications Medications (Trade) Dose Ordered Sig/Darren Route PRN Reason Start Time Stop Time Status Last Admin Dose Admin Al Hydroxide/Mg Hydroxide (Mylanta II) 30 ml Q6H PRN ORAL dyspepsia 07/14/17 21:30 08/13/17 21:29 Atorvastatin Calcium (Lipitor) 10 mg BEDTIME ORAL 07/15/17 21:00 08/14/17 20:59 07/16/17 22:01 Dextrose (Dextrose 50%) STAT PRN IV Hypoglycemia 07/14/17 21:30 08/13/17 21:29 Donepezil HCl (Aricept) 5 mg BEDTIME ORAL 07/15/17 21:00 08/14/17 20:59 07/16/17 22:01 Levothyroxine Sodium (Synthroid) 50 mcg ACBREAKFAST ORAL 07/15/17 06:30 08/14/17 06:29 07/17/17 06:22 Lorazepam (Ativan 2mg/ml 1ml) 0.5 mg Q4H PRN IV For Anxiety 07/14/17 21:30 07/21/17 21:29 Morphine Sulfate (Morphine Sulfate) 1 mg Q4H PRN IVP For Pain 07/14/17 21:30 07/21/17 21:29 Ondansetron HCl (Zofran) 4 mg Q6H PRN IVP Nausea & Vomiting 07/14/17 21:30 08/13/17 21:29 Oxycodone HCl (Roxicodone) 5 mg EVERY 6 HOURS PRN ORAL Moderate Pain (Pain Scale 4-6) 07/15/17 07:00 07/22/17 06:59 07/16/17 10:10 Polyethylene Glycol (Miralax) 17 gm HSPRN PRN ORAL Constipation 07/14/17 21:30 08/13/17 21:29 Risperidone (RisperDAL) 1 mg BID ORAL 07/16/17 09:00 08/15/17 08:59 07/16/17 17:48 Sertraline HCl (Zoloft) 25 mg DAILY ORAL 07/15/17 09:00 08/14/17 08:59 07/16/17 10:08 Vancomycin HCl (Vanco rx to dose) 1 ea DAILY PRN MISC Per rx protocol 07/15/17 13:30 08/14/17 13:29 Vancomycin HCl/ Dextrose 250 ml @ 166.667 mls/hr Q12H IVPB 07/15/17 15:00 07/20/17 14:59 07/17/17 02:32 Zolpidem Tartrate (Ambien) 5 mg HSPRN PRN ORAL Insomnia 07/14/17 21:30 07/21/17 21:29 Ryann Ramirez NP ([facility]) Jul 17, 2017 07:48
[2017-07-17] MEDS: oxyCODONE 5mg IR tab ORAL PRN ×2 (08:28→15:17)
[2017-07-17] MEDS: Sertraline 50mg tab ORAL SCH (08:28)
--- NOTE | 2017-07-17 08:53 | General Surgery Progress Note ---
General Surgery-Progress Note Subjective Additional Comments patient seen and examined at bedside. no acute events. doing well. CT reviewed. no n/v/f/c. comfortable. resting. dressings going okay Objective Last 24 Hour Vital Signs Date Time Temp Pulse Resp B/P (MAP) Pulse Ox O2 Delivery O2 Flow Rate FiO2 07/17/17 08:00 97.5 80 20 127/69 95 07/17/17 04:00 97.0 67 18 119/72 94 Room Air 07/17/17 00:00 98.2 69 20 129/77 95 Room Air 07/16/17 20:00 97.0 96 20 115/70 95 Room Air 07/16/17 15:55 97.7 65 18 125/75 94 07/16/17 12:32 97.4 58 20 125/71 95 Wound: clean, other - left inguinal wound clean and with minimal serous drainage from sinus tract. Cardiovascular: RSR Respiratory: clear Abdomen: soft, non-tender, present bowel sounds Extremities: no edema, no tenderness Laboratory Tests Test 07/16/17 14:10 07/17/17 06:45 Random Vancomycin Level 11.4 ug/mL White Blood Count 6.5 K/UL (4.8-10.8) Red Blood Count 4.48 M/UL (4.70-6.10) L Hemoglobin 13.5 G/DL (14.2-18.0) L Hematocrit 40.0 % (42.0-52.0) L Mean Corpuscular Volume 89 FL (80-99) Mean Corpuscular Hemoglobin 30.3 PG (27.0-31.0) Mean Corpuscular Hemoglobin Concent 33.9 G/DL (32.0-36.0) Red Cell Distribution Width 13.0 % (11.6-14.8) Platelet Count 238 K/UL (150-450) Mean Platelet Volume 6.0 FL (6.5-10.1) L Neutrophils (%) (Auto) 77.9 % (45.0-75.0) H Lymphocytes (%) (Auto) 10.9 % (20.0-45.0) L Monocytes (%) (Auto) 8.9 % (1.0-10.0) Eosinophils (%) (Auto) 1.6 % (0.0-3.0) Basophils (%) (Auto) 0.8 % (0.0-2.0) Sodium Level 135 MMOL/L (136-145) L Potassium Level 3.8 MMOL/L (3.5-5.1) Chloride Level 102 MMOL/L (98-107) Carbon Dioxide Level 24 MMOL/L (21-32) Anion Gap 9 mmol/L (5-15) Blood Urea Nitrogen 14 mg/dL (7-18) Creatinine 0.9 MG/DL (0.55-1.30) Estimat Glomerular Filtration Rate mL/min (>60) Glucose Level 125 MG/DL (74-106) H Calcium Level 8.5 MG/DL (8.5-10.1) Plan Problems: (1) Non-healing wound Assessment & Plan: 77 year old male with slowly healing left groin wound. had history of left inguinal hernia repair with mesh. some time after surgery had wound opening and drainage. since slowly healing. Initially concerned for worsening infection or mesh infection but reviewed CT scan with radiologist and compared to prior exam 1 year ago there is significant improvement. no findings to suggest mesh infection at this time. drainage sinus tract still present but smaller. no abscess. surrounding cellulitis. given this no acute surgical intervention necessary. continue with wound care and Abx for cellulitis. will monitor wound until closed and while in hospital. afebrile, HD stable, labs okay, exam stable. continue with wound care will monitor wound optimal nutrition Dorian Washburn Jul 17, 2017 08:53
--- NOTE | 2017-07-17 13:08 | Infectious Diseases Prog Note ---
Assessment/Plan Assessment/Plan A; Wound infection with staph aureus, MRSA COPD Alzheimer disease Hypothyroidism P; continue IV Vancomycin in hospital At time of discharge PO Bactrim DS BID X 7 days Subjective ROS Limited/Unobtainable: No Constitutional: Reports: other - doing better Breasts: Reports: no symptoms Cardiovascular: Reports: no symptoms Gastrointestinal/Abdominal: Reports: no symptoms Musculoskeletal: Reports: pain, other - decreased Allergies: Coded Allergies: DIVALPROEX SODIUM (Verified Allergy, Severe, rash , 05/30/14) all over body ACETAMINOPHEN (Unverified Allergy, Unknown, 07/14/17) ASPIRIN (Unverified Allergy, Unknown, 07/14/17) HALOPERIDOL (Unverified Allergy, Unknown, 07/14/17) Objective Vital Signs Last 24 Hour Vital Signs Date Time Temp Pulse Resp B/P (MAP) Pulse Ox O2 Delivery O2 Flow Rate FiO2 07/17/17 08:00 97.5 80 20 127/69 95 07/17/17 04:00 97.0 67 18 119/72 94 Room Air 07/17/17 00:00 98.2 69 20 129/77 95 Room Air 07/16/17 20:00 97.0 96 20 115/70 95 Room Air 07/16/17 15:55 97.7 65 18 125/75 94 Height (Feet): 6 Height (Inches): 0.00 Weight (Pounds): 180 General Appearance: no acute distress HEENT: mucous membranes moist Respiratory/Chest: lungs clear Cardiovascular: normal rate Abdomen: soft, non tender Genitourinary: other Extremities: no edema Skin: other - left inguinal ulcer Microbiology Date/Time Source Procedure Growth Status 07/14/17 21:15 Blood Blood Culture - Preliminary NO GROWTH AFTER 48 HOURS Resulted 07/14/17 21:00 Blood Blood Culture - Preliminary NO GROWTH AFTER 48 HOURS Resulted 07/15/17 00:10 Abdomen Gram Stain - Final Resulted 07/15/17 00:10 Wound Culture - Preliminary Staphylococcus Aureus - Mrsa Diphtheroids Resulted 07/14/17 23:52 Rectum VRE Culture - Final NO VANCOMYCIN RESISTANT ENTEROCOCCUS ... Complete Laboratory Tests Test 07/16/17 14:10 07/17/17 06:45 Random Vancomycin Level 11.4 ug/mL White Blood Count 6.5 K/UL (4.8-10.8) Red Blood Count 4.48 M/UL (4.70-6.10) L Hemoglobin 13.5 G/DL (14.2-18.0) L Hematocrit 40.0 % (42.0-52.0) L Mean Corpuscular Volume 89 FL (80-99) Mean Corpuscular Hemoglobin 30.3 PG (27.0-31.0) Mean Corpuscular Hemoglobin Concent 33.9 G/DL (32.0-36.0) Red Cell Distribution Width 13.0 % (11.6-14.8) Platelet Count 238 K/UL (150-450) Mean Platelet Volume 6.0 FL (6.5-10.1) L Neutrophils (%) (Auto) 77.9 % (45.0-75.0) H Lymphocytes (%) (Auto) 10.9 % (20.0-45.0) L Monocytes (%) (Auto) 8.9 % (1.0-10.0) Eosinophils (%) (Auto) 1.6 % (0.0-3.0) Basophils (%) (Auto) 0.8 % (0.0-2.0) Sodium Level 135 MMOL/L (136-145) L Potassium Level 3.8 MMOL/L (3.5-5.1) Chloride Level 102 MMOL/L (98-107) Carbon Dioxide Level 24 MMOL/L (21-32) Anion Gap 9 mmol/L (5-15) Blood Urea Nitrogen 14 mg/dL (7-18) Creatinine 0.9 MG/DL (0.55-1.30) Estimat Glomerular Filtration Rate mL/min (>60) Glucose Level 125 MG/DL (74-106) H Calcium Level 8.5 MG/DL (8.5-10.1) Current Medications Medications (Trade) Dose Ordered Sig/Darren Route PRN Reason Start Time Stop Time Status Last Admin Dose Admin Al Hydroxide/Mg Hydroxide (Mylanta II) 30 ml Q6H PRN ORAL dyspepsia 07/14/17 21:30 08/13/17 21:29 Atorvastatin Calcium (Lipitor) 10 mg BEDTIME ORAL 07/15/17 21:00 08/14/17 20:59 07/16/17 22:01 Dextrose (Dextrose 50%) STAT PRN IV Hypoglycemia 07/14/17 21:30 08/13/17 21:29 Donepezil HCl (Aricept) 5 mg BEDTIME ORAL 07/15/17 21:00 08/14/17 20:59 07/16/17 22:01 Levothyroxine Sodium (Synthroid) 50 mcg ACBREAKFAST ORAL 07/15/17 06:30 08/14/17 06:29 07/17/17 06:22 Lorazepam (Ativan 2mg/ml 1ml) 0.5 mg Q4H PRN IV For Anxiety 07/14/17 21:30 07/21/17 21:29 Morphine Sulfate (Morphine Sulfate) 1 mg Q4H PRN IVP For Pain 07/14/17 21:30 07/21/17 21:29 Ondansetron HCl (Zofran) 4 mg Q6H PRN IVP Nausea & Vomiting 07/14/17 21:30 08/13/17 21:29 Oxycodone HCl (Roxicodone) 5 mg EVERY 6 HOURS PRN ORAL Moderate Pain (Pain Scale 4-6) 07/15/17 07:00 07/22/17 06:59 07/17/17 08:28 Polyethylene Glycol (Miralax) 17 gm HSPRN PRN ORAL Constipation 07/14/17 21:30 08/13/17 21:29 Risperidone (RisperDAL) 1 mg BID ORAL 07/16/17 09:00 08/15/17 08:59 07/17/17 08:28 Sertraline HCl (Zoloft) 25 mg DAILY ORAL 07/15/17 09:00 08/14/17 08:59 07/17/17 08:28 Vancomycin HCl (Vanco rx to dose) 1 ea DAILY PRN MISC Per rx protocol 07/15/17 13:30 08/14/17 13:29 Vancomycin HCl/ Dextrose 250 ml @ 166.667 mls/hr Q12H IVPB 07/15/17 15:00 07/20/17 14:59 07/17/17 02:32 Zolpidem Tartrate (Ambien) 5 mg HSPRN PRN ORAL Insomnia 07/14/17 21:30 07/21/17 21:29 RODNEY VENTURA Jul 17, 2017 13:08
--- NOTE | 2017-07-17 13:33 | General Progress Note ---
Assessment/Plan Problem List: (1) Decubitus ulcer ICD Codes: L89.90 - Pressure ulcer of unspecified site, unspecified stage SNOMED: 396809846 (2) COPD (chronic obstructive pulmonary disease) ICD Codes: J44.9 - Chronic obstructive pulmonary disease, unspecified SNOMED: 34585935 (3) Anxiety ICD Codes: F41.9 - Anxiety disorder, unspecified SNOMED: 19491479 (4) Malnutrition ICD Codes: E46 - Unspecified protein-calorie malnutrition SNOMED: 58148370 (5) Hypothyroid ICD Codes: E03.9 - Hypothyroidism, unspecified SNOMED: 21964942 (6) Cellulitis ICD Codes: L03.90 - Cellulitis, unspecified SNOMED: 490965377 (7) Weakness ICD Codes: R53.1 - Weakness SNOMED: 86673494 (8) HTN (hypertension) ICD Codes: I10 - HTN (hypertension) SNOMED: 26957899 Status: stable, progressing, tolerating diet Assessment/Plan wound care abx sx f/u cbc bmp am dc plan if clear Subjective Constitutional: Reports: weakness Allergies: Coded Allergies: DIVALPROEX SODIUM (Verified Allergy, Severe, rash , 05/30/14) all over body ACETAMINOPHEN (Unverified Allergy, Unknown, 07/14/17) ASPIRIN (Unverified Allergy, Unknown, 07/14/17) HALOPERIDOL (Unverified Allergy, Unknown, 07/14/17) All Systems: reviewed and negative except above Subjective sl left inguinal pian Objective Last 24 Hour Vital Signs Date Time Temp Pulse Resp B/P (MAP) Pulse Ox O2 Delivery O2 Flow Rate FiO2 07/17/17 12:00 97.5 61 20 95/55 94 07/17/17 08:00 97.5 80 20 127/69 95 07/17/17 04:00 97.0 67 18 119/72 94 Room Air 07/17/17 00:00 98.2 69 20 129/77 95 Room Air 07/16/17 20:00 97.0 96 20 115/70 95 Room Air 07/16/17 15:55 97.7 65 18 125/75 94 Laboratory Tests 07/16/17 14:10: Random Vancomycin Level 11.4 07/17/17 06:45: White Blood Count 6.5, Red Blood Count 4.48L, Hemoglobin 13.5L, Hematocrit 40.0L , Mean Corpuscular Volume 89, Mean Corpuscular Hemoglobin 30.3, Mean Corpuscular Hemoglobin Concent 33.9, Red Cell Distribution Width 13.0, Platelet Count 238, Mean Platelet Volume 6.0L, Neutrophils (%) (Auto) 77.9H, Lymphocytes (%) (Auto) 10.9L, Monocytes (%) (Auto) 8.9, Eosinophils (%) (Auto) 1.6, Basophils (%) (Auto) 0.8, Sodium Level 135L, Potassium Level 3.8, Chloride Level 102, Carbon Dioxide Level 24, Anion Gap 9, Blood Urea Nitrogen 14, Creatinine 0.9, Estimat Glomerular Filtration Rate , Glucose Level 125H, Calcium Level 8.5 Height (Feet): 6 Height (Inches): 0.00 Weight (Pounds): 180 General Appearance: alert EENT: normal ENT inspection Neck: normal alignment Cardiovascular: normal peripheral pulses, normal rate, regular rhythm Respiratory/Chest: chest wall non-tender, lungs clear, normal breath sounds Abdomen: normal bowel sounds, non tender, soft Extremities: normal inspection Edema: no edema noted Arm (L), no edema noted Arm (R), no edema noted Leg (L), no edema noted Leg (R), no edema noted Pedal (L), no edema noted Pedal (R), no edema noted Generalized Neurologic: responsive, motor weakness Skin: normal pigmentation, warm/dry Objective l inguinal dressing c&LENA Crews Jul 17, 2017 13:33
--- NOTE | 2017-07-17 14:35 | Diagnostic Imaging Report ---
APPROVED REPORT CPT Code: 28025 Present Symptoms Comments: R/O DVT Pain BILATERAL: Imaging reveals a patent deep venous system bilaterally. There is no evidence of thrombus within the femoral, popliteal or tibial segments. The greater saphenous veins are also within normal limits. Doppler indicates normal spontaneous flow within these segments.
[2017-07-17] MEDS: Donepezil 5mg Tab ORAL SCH (20:35)
--- NOTE | 2017-07-18 01:15 | Consultation ---
DATE OF CONSULTATION: 07/17/2017 ENDOCRINOLOGIC CONSULTATION CONSULTING PHYSICIAN: Efrain Amaya M.D. REFERRING PHYSICIAN: Anthony Miller D.O. REASON FOR CONSULTATION: Abnormal thyroid function test. HISTORY OF PRESENT ILLNESS: The patient is a 77-year-old male with history of dementia, resident of a [facility], who presented to the emergency department with a decubitus and left inguinal hernia. The patient was brought in surgical evaluation. As a part of the workup, a thyroid function test was obtained, which was abnormal. TSH was as high as 3.7. As an outpatient, the patient is on levothyroxine 50 mcg daily, he takes every morning on empty stomach. PAST MEDICAL HISTORY: 1. Hypothyroidism. 2. Dementia. 3. Anxiety. 4. COPD. 5. Hypertension. PAST SURGICAL HISTORY: Left inguinal hernia. MEDICATIONS: Medications reviewed and reconciled. ALLERGIES: Tylenol, Haldol, aspirin, and divalproex. SOCIAL HISTORY: Lives in a [facility] facility. No smoking, alcohol, or drug use. FAMILY HISTORY: Noncontributory. PHYSICAL EXAMINATION: GENERAL: The patient very oriented x2, awake. VITAL SIGNS: Blood pressure is 130/82, pulse of 80, temperature of 98 degrees, and respiratory rate of 18. HEENT: Pupils are equal and reactive to light . NECK: No JVD. HEART: Regular. LUNGS: Clear. ABDOMEN: Positive bowel sounds. EXTREMITIES: No edema. LABORATORY VALUES: Sodium 135, potassium 3.8, chloride 102, bicarbonate 24, BUN 14, creatinine 0.9, glucose 125. TSH 3.7. DIAGNOSES: 1. Decubitus ulcer. 2. Dementia. 3. Hypothyroidism. PLAN: The current dosage of levothyroxine does not suffice. We will increase from 50 mcg to 75 mcg to be taken every morning on empty stomach. Repeat thyroid function should be obtained in eight weeks for further adjustment if necessary. Thank you, Dr. Miller, for the courtesy of this consultation. Efrain Amaya M.D. DR: JUNE/lobito JOB#: [id number] CC:
[2017-07-18] MEDS: Vancomycin 1250mg/D5W 250ml IVPB SCH (03:02)
[2017-07-18 07:38] LABS: BASOPHILS % (AUTO) 0.7 % (0.0-2.0); EOSINOPHILS % (AUTO) 1.4 % (0.0-3.0); LYMPHOCYTES % (AUTO) 13.5 % (20.0-45.0); MEAN CORPUSCULAR HGB CONC 33.2 G/DL (32.0-36.0); MEAN CORPUSCULAR VOLUME 90 FL (80-99); MEAN PLATELET VOLUME 5.8 FL (6.5-10.1); MONOCYTES % (AUTO) 9.7 % (1.0-10.0); NEUTROPHILS % (AUTO) 74.7 % (45.0-75.0); PLATELET COUNT 249 K/UL (150-450); RED BLOOD COUNT 4.47 M/UL (4.70-6.10); RED CELL DISTRIBUTION WIDTH 13.2 % (11.6-14.8); WHITE BLOOD COUNT 7.3 K/UL (4.8-10.8)
[2017-07-18 07:59] LABS: ANION GAP 7 mmol/L (5-15); CALCIUM 8.7 MG/DL (8.5-10.1); CARBON DIOXIDE 26 MMOL/L (21-32); CHLORIDE 101 MMOL/L (98-107); CREATININE 0.9 MG/DL (0.55-1.30); POTASSIUM 3.9 MMOL/L (3.5-5.1); SODIUM 134 MMOL/L (136-145)
[2017-07-18 08:00] VITALS: BP 134/77
[2017-07-18] MEDS: Sertraline 50mg tab ORAL SCH (08:24)
[2017-07-18] MEDS: Morphine Sulfate 2mg/ml Inj IVP PRN ×2 (08:24→13:57)
--- NOTE | 2017-07-18 08:57 | General Progress Note ---
Assessment/Plan Problem List: (1) Decubitus ulcer ICD Codes: L89.90 - Pressure ulcer of unspecified site, unspecified stage SNOMED: 621749574 (2) COPD (chronic obstructive pulmonary disease) ICD Codes: J44.9 - Chronic obstructive pulmonary disease, unspecified SNOMED: 79372918 (3) Anxiety ICD Codes: F41.9 - Anxiety disorder, unspecified SNOMED: 26565801 (4) Malnutrition ICD Codes: E46 - Unspecified protein-calorie malnutrition SNOMED: 95290119 (5) Hypothyroid ICD Codes: E03.9 - Hypothyroidism, unspecified SNOMED: 69145677 (6) Cellulitis ICD Codes: L03.90 - Cellulitis, unspecified SNOMED: 641608967 (7) Weakness ICD Codes: R53.1 - Weakness SNOMED: 35281760 (8) HTN (hypertension) ICD Codes: I10 - HTN (hypertension) SNOMED: 91272595 Status: stable, progressing, tolerating diet Assessment/Plan wound care abx sx f/u cleared by sx and id dc to snf Subjective Constitutional: Reports: weakness Allergies: Coded Allergies: DIVALPROEX SODIUM (Verified Allergy, Severe, rash , 05/30/14) all over body ACETAMINOPHEN (Unverified Allergy, Unknown, 07/14/17) ASPIRIN (Unverified Allergy, Unknown, 07/14/17) HALOPERIDOL (Unverified Allergy, Unknown, 07/14/17) All Systems: reviewed and negative except above Subjective sl left inguinal pian Objective Last 24 Hour Vital Signs Date Time Temp Pulse Resp B/P (MAP) Pulse Ox O2 Delivery O2 Flow Rate FiO2 07/18/17 08:00 97.5 78 20 134/77 94 07/18/17 04:00 Room Air 07/18/17 00:01 Room Air 07/17/17 23:26 97.9 68 20 110/59 95 Room Air 07/17/17 20:00 Room Air 07/17/17 19:20 97.5 66 18 108/64 93 Room Air 07/17/17 16:15 98.1 69 19 139/79 97 Room Air 07/17/17 12:00 97.5 61 20 95/55 94 Laboratory Tests 07/18/17 05:20: White Blood Count 7.3, Red Blood Count 4.47L, Hemoglobin 13.4L, Hematocrit 40.3L , Mean Corpuscular Volume 90, Mean Corpuscular Hemoglobin 30.0, Mean Corpuscular Hemoglobin Concent 33.2, Red Cell Distribution Width 13.2, Platelet Count 249, Mean Platelet Volume 5.8L, Neutrophils (%) (Auto) 74.7, Lymphocytes ( %) (Auto) 13.5L, Monocytes (%) (Auto) 9.7, Eosinophils (%) (Auto) 1.4, Basophils (%) (Auto) 0.7, Sodium Level 134L, Potassium Level 3.9, Chloride Level 101, Carbon Dioxide Level 26, Anion Gap 7, Blood Urea Nitrogen 15, Creatinine 0.9, Estimat Glomerular Filtration Rate , Glucose Level 117H, Calcium Level 8.7 Height (Feet): 6 Height (Inches): 0.00 Weight (Pounds): 180 General Appearance: alert EENT: normal ENT inspection Neck: normal alignment Cardiovascular: normal peripheral pulses, normal rate, regular rhythm Respiratory/Chest: chest wall non-tender, lungs clear, normal breath sounds Abdomen: normal bowel sounds, non tender, soft Extremities: normal inspection Edema: no edema noted Arm (L), no edema noted Arm (R), no edema noted Leg (L), no edema noted Leg (R), no edema noted Pedal (L), no edema noted Pedal (R), no edema noted Generalized Neurologic: responsive, motor weakness Skin: normal pigmentation, warm/dry Objective l inguinal dressing c&LENA Crews Jul 18, 2017 08:57
--- NOTE | 2017-07-18 09:17 | General Surgery Progress Note ---
General Surgery-Progress Note Subjective Symptoms: improved, tolerating diet, passing flatus, BM Additional Comments no acute events. doing well. no complaints. Objective Last 24 Hour Vital Signs Date Time Temp Pulse Resp B/P (MAP) Pulse Ox O2 Delivery O2 Flow Rate FiO2 07/18/17 08:00 97.5 78 20 134/77 94 07/18/17 04:00 Room Air 07/18/17 00:01 Room Air 07/17/17 23:26 97.9 68 20 110/59 95 Room Air 07/17/17 20:00 Room Air 07/17/17 19:20 97.5 66 18 108/64 93 Room Air 07/17/17 16:15 98.1 69 19 139/79 97 Room Air 07/17/17 12:00 97.5 61 20 95/55 94 Dressing: dry, saturated - serous output Wound: clean, other - sinus tract slowly improving. minimal serous draiange. cellulitis improved. no tendnersnes. Cardiovascular: RSR Respiratory: clear Abdomen: soft, flat, non-tender, present bowel sounds Extremities: no tenderness Laboratory Tests Test 07/18/17 05:20 White Blood Count 7.3 K/UL (4.8-10.8) Red Blood Count 4.47 M/UL (4.70-6.10) L Hemoglobin 13.4 G/DL (14.2-18.0) L Hematocrit 40.3 % (42.0-52.0) L Mean Corpuscular Volume 90 FL (80-99) Mean Corpuscular Hemoglobin 30.0 PG (27.0-31.0) Mean Corpuscular Hemoglobin Concent 33.2 G/DL (32.0-36.0) Red Cell Distribution Width 13.2 % (11.6-14.8) Platelet Count 249 K/UL (150-450) Mean Platelet Volume 5.8 FL (6.5-10.1) L Neutrophils (%) (Auto) 74.7 % (45.0-75.0) Lymphocytes (%) (Auto) 13.5 % (20.0-45.0) L Monocytes (%) (Auto) 9.7 % (1.0-10.0) Eosinophils (%) (Auto) 1.4 % (0.0-3.0) Basophils (%) (Auto) 0.7 % (0.0-2.0) Sodium Level 134 MMOL/L (136-145) L Potassium Level 3.9 MMOL/L (3.5-5.1) Chloride Level 101 MMOL/L (98-107) Carbon Dioxide Level 26 MMOL/L (21-32) Anion Gap 7 mmol/L (5-15) Blood Urea Nitrogen 15 mg/dL (7-18) Creatinine 0.9 MG/DL (0.55-1.30) Estimat Glomerular Filtration Rate mL/min (>60) Glucose Level 117 MG/DL (74-106) H Calcium Level 8.7 MG/DL (8.5-10.1) Plan Problems: (1) Non-healing wound Assessment & Plan: 77 year old male with slowly healing left groin wound. had history of left inguinal hernia repair with mesh. some time after surgery had wound opening and drainage. since slowly healing. Initially concerned for worsening infection or mesh infection but reviewed CT scan with radiologist and compared to prior exam 1 year ago there is significant improvement. no findings to suggest mesh infection at this time. drainage sinus tract still present but smaller. no abscess. surrounding cellulitis improved. given this no acute surgical intervention necessary. afebrile, HD stable, labs okay, exam stable. continue with wound care and Abx for cellulitis. will monitor wound until closed and while in hospital. continue with wound care - dry dressings please to allow for wound and sinus tract to dry and granulate. will monitor wound optimal nutrition okay to d/c from surgical standpoint Dorian Washburn Jul 18, 2017 09:17
--- NOTE | 2017-07-18 11:10 | Infectious Diseases Prog Note ---
"Assessment/Plan Assessment/Plan antibiotics : iv vancomycin A 1. MRSA wound infection | cellulitis 2. COPD 3. hypothyroidism P 1. continue iv vancomycin 2. po bactrim on discharge 6 more days 3. will follow up cultures Subjective Constitutional: Denies: fever, chills Respiratory: Denies: shortness of breath, dry cough Gastrointestinal/Abdominal: Denies: nausea, vomiting, diarrhea Musculoskeletal: Reports: pain Allergies: Coded Allergies: DIVALPROEX SODIUM (Verified Allergy, Severe, rash , 05/30/14) all over body ACETAMINOPHEN (Unverified Allergy, Unknown, 07/14/17) ASPIRIN (Unverified Allergy, Unknown, 07/14/17) HALOPERIDOL (Unverified Allergy, Unknown, 07/14/17) Objective Vital Signs Last 24 Hour Vital Signs Date Time Temp Pulse Resp B/P (MAP) Pulse Ox O2 Delivery O2 Flow Rate FiO2 07/18/17 08:00 Room Air 07/18/17 08:00 97.5 78 20 134/77 94 07/18/17 04:00 Room Air 07/18/17 00:01 Room Air 07/17/17 23:26 97.9 68 20 110/59 95 Room Air 07/17/17 20:00 Room Air 07/17/17 19:20 97.5 66 18 108/64 93 Room Air 07/17/17 16:15 98.1 69 19 139/79 97 Room Air 07/17/17 12:00 97.5 61 20 95/55 94 Height (Feet): 6 Height (Inches): 0.00 Weight (Pounds): 180 Respiratory/Chest: lungs clear Cardiovascular: normal rate, regular rhythm, no gallop/murmur Abdomen: soft, non tender Extremities: other - left arm erythema, swelling Laboratory Tests Test 07/18/17 05:20 White Blood Count 7.3 K/UL (4.8-10.8) Red Blood Count 4.47 M/UL (4.70-6.10) L Hemoglobin 13.4 G/DL (14.2-18.0) L Hematocrit 40.3 % (42.0-52.0) L Mean Corpuscular Volume 90 FL (80-99) Mean Corpuscular Hemoglobin 30.0 PG (27.0-31.0) Mean Corpuscular Hemoglobin Concent 33.2 G/DL (32.0-36.0) Red Cell Distribution Width 13.2 % (11.6-14.8) Platelet Count 249 K/UL (150-450) Mean Platelet Volume 5.8 FL (6.5-10.1) L Neutrophils (%) (Auto) 74.7 % (45.0-75.0) Lymphocytes (%) (Auto) 13.5 % (20.0-45.0) L Monocytes (%) (Auto) 9.7 % (1.0-10.0) Eosinophils (%) (Auto) 1.4 % (0.0-3.0) Basophils (%) (Auto) 0.7 % (0.0-2.0) Sodium Level 134 MMOL/L (136-145) L Potassium Level 3.9 MMOL/L (3.5-5.1) Chloride Level 101 MMOL/L (98-107) Carbon Dioxide Level 26 MMOL/L (21-32) Anion Gap 7 mmol/L (5-15) Blood Urea Nitrogen 15 mg/dL (7-18) Creatinine 0.9 MG/DL (0.55-1.30) Estimat Glomerular Filtration Rate mL/min (>60) Glucose Level 117 MG/DL (74-106) H Calcium Level 8.7 MG/DL (8.5-10.1) INO BOWERS Jul 18, 2017 11:10"
--- NOTE | 2017-07-18 11:31 | Pulmonology Progress Note ---
Assessment/Plan Assessment/Plan ASSESSMENT infected wound with MRSA(non- healing) cellulitis with draining sinus tract s/p left inguinal hernia repair with mesh (1 year ago) COPD Alzheimer dementia hypothyroidism Direct fat containing R inguinal hernia paranoid schizophrenia with acute exacerbation PLAN OF CARE MS floor abx, ID follows, wound cx + Staph aureus, blood cx negative CT pelvis noted surgery follows per surgeon no acute surgical interventions needed at this time; continue with abx and wound care O2 HHN prn Continue Aricept TSH borderline elevated, continue same dose of Levothyroxine for now, check TSH in 1 month Psych follows, psych meds regimen optimized dc plan as per pMD case discussed and evaluated by supervising physician Subjective Allergies: Coded Allergies: DIVALPROEX SODIUM (Verified Allergy, Severe, rash , 05/30/14) all over body ACETAMINOPHEN (Unverified Allergy, Unknown, 07/14/17) ASPIRIN (Unverified Allergy, Unknown, 07/14/17) HALOPERIDOL (Unverified Allergy, Unknown, 07/14/17) Subjective afebrile, no leukocytosis Objective Last 24 Hour Vital Signs Date Time Temp Pulse Resp B/P (MAP) Pulse Ox O2 Delivery O2 Flow Rate FiO2 07/18/17 08:00 Room Air 07/18/17 08:00 97.5 78 20 134/77 94 07/18/17 04:00 Room Air 07/18/17 00:01 Room Air 07/17/17 23:26 97.9 68 20 110/59 95 Room Air 07/17/17 20:00 Room Air 07/17/17 19:20 97.5 66 18 108/64 93 Room Air 07/17/17 16:15 98.1 69 19 139/79 97 Room Air 07/17/17 12:00 97.5 61 20 95/55 94 Objective General Appearance: no acute distress, awake, alert, responsive HEENT: normocephalic, atraumatic Respiratory/Chest: lungs clear, no respiratory distress, no accessory muscle use Cardiovascular: normal peripheral pulses, normal rate, regular rhythm, no JVD Abdomen: normal bowel sounds, soft, non tender, non distended Extremities: no edema Skin: Left inguinal area with open draining wound Neurologic/Psychiatric: abnormal gait, alert, responsive Musculoskeletal: atrophy - BLE Laboratory Tests 07/18/17 05:20: White Blood Count 7.3, Red Blood Count 4.47L, Hemoglobin 13.4L, Hematocrit 40.3L , Mean Corpuscular Volume 90, Mean Corpuscular Hemoglobin 30.0, Mean Corpuscular Hemoglobin Concent 33.2, Red Cell Distribution Width 13.2, Platelet Count 249, Mean Platelet Volume 5.8L, Neutrophils (%) (Auto) 74.7, Lymphocytes ( %) (Auto) 13.5L, Monocytes (%) (Auto) 9.7, Eosinophils (%) (Auto) 1.4, Basophils (%) (Auto) 0.7, Sodium Level 134L, Potassium Level 3.9, Chloride Level 101, Carbon Dioxide Level 26, Anion Gap 7, Blood Urea Nitrogen 15, Creatinine 0.9, Estimat Glomerular Filtration Rate , Glucose Level 117H, Calcium Level 8.7 Current Medications Medications (Trade) Dose Ordered Sig/Darren Route PRN Reason Start Time Stop Time Status Last Admin Dose Admin Al Hydroxide/Mg Hydroxide (Mylanta II) 30 ml Q6H PRN ORAL dyspepsia 07/14/17 21:30 08/13/17 21:29 Atorvastatin Calcium (Lipitor) 10 mg BEDTIME ORAL 07/15/17 21:00 08/14/17 20:59 07/17/17 20:35 Dextrose (Dextrose 50%) STAT PRN IV Hypoglycemia 07/14/17 21:30 08/13/17 21:29 Donepezil HCl (Aricept) 5 mg BEDTIME ORAL 07/15/17 21:00 08/14/17 20:59 07/17/17 20:35 Levothyroxine Sodium (Synthroid) 75 mcg ACBREAKFAST ORAL 07/18/17 06:30 08/17/17 06:29 07/18/17 06:11 Lorazepam (Ativan 2mg/ml 1ml) 0.5 mg Q4H PRN IV For Anxiety 07/14/17 21:30 07/21/17 21:29 Morphine Sulfate (Morphine Sulfate) 1 mg Q4H PRN IVP For Pain 07/14/17 21:30 07/21/17 21:29 07/18/17 08:24 Ondansetron HCl (Zofran) 4 mg Q6H PRN IVP Nausea & Vomiting 07/14/17 21:30 08/13/17 21:29 Oxycodone HCl (Roxicodone) 5 mg EVERY 6 HOURS PRN ORAL Moderate Pain (Pain Scale 4-6) 07/15/17 07:00 07/22/17 06:59 07/17/17 15:17 Polyethylene Glycol (Miralax) 17 gm HSPRN PRN ORAL Constipation 07/14/17 21:30 08/13/17 21:29 Risperidone (RisperDAL) 1 mg BID ORAL 07/16/17 09:00 08/15/17 08:59 07/18/17 08:23 Sertraline HCl (Zoloft) 25 mg DAILY ORAL 07/15/17 09:00 08/14/17 08:59 07/18/17 08:24 Vancomycin HCl (Vanco rx to dose) 1 ea DAILY PRN MISC Per rx protocol 07/15/17 13:30 08/14/17 13:29 Vancomycin HCl/ Dextrose 250 ml @ 166.667 mls/hr Q12H IVPB 07/15/17 15:00 07/20/17 14:59 07/18/17 03:02 Zolpidem Tartrate (Ambien) 5 mg HSPRN PRN ORAL Insomnia 07/14/17 21:30 07/21/17 21:29 James (Aaron)Ryann NP Jul 18, 2017 11:31
[2017-07-18 12:00] VITALS: BP 135/75
[2017-07-18] MEDS ORDERED: LEVOTHYROXINE75 MCG ORAL (12:00)
[2017-07-18] MEDS ORDERED: MYLANTA30 M1 GT (12:01)
[2017-07-18] MEDS ORDERED: LORAZEPAM2 MG/1 M3 IV (12:03)
[2017-07-18] MEDS ORDERED: MIRALAX17 G2 ORAL (12:04)
[2017-07-18] MEDS ORDERED: MORPHINE 22 MG/1 ML IV (12:04)
[2017-07-18] MEDS ORDERED: AMBIEN5 MG ORAL (12:05)
[2017-07-18] MEDS ORDERED: ZOFRAN 4 MG4 MG/2 ML IV (12:05)
[2017-07-18] MEDS ORDERED: OXYCODONE HCL5 M2 ORAL (12:06)
[2017-07-18] MEDS ORDERED: BACTRIM DS TAB1 EAC1 ORAL (12:08)
[2017-07-18] MEDS ORDERED: Tubing IV Secondary IV ONE (15:36)
--- NOTE | 2017-07-21 11:37 | Discharge Summary ---
Discharge Summary Hospital Course Date of Admission Jul 14, 2017 at 22:08 Date of Discharge Jul 18, 2017 at 15:41 Admitting Diagnosis cellulitis HPI Hussein Billy is a 77 year old male who was admitted on Jul 14, 2017 at 22:08 for Cellulitis Hospital Course dc summary #[id number] Discharge Medications Continued Medications: Al Hydroxide/mg Hydroxide (Mag-Al Liquid) 30 Ml Oral.susp 30 ML GT Q6HR PRN for Constipation, ML Atorvastatin Calcium* (Lipitor*) 10 Mg Tablet 10 MG ORAL BEDTIME, TAB Donepezil Hcl* (Aricept*) 5 Mg Tablet 5 MG ORAL BEDTIME, TAB Levothyroxine Sodium* (Levothyroxine Sodium*) 75 Mcg Tablet 75 MCG ORAL DAILY, TAB Take in the morning on an empty stomach, at least 30 minutes before food. Lorazepam (Lorazepam) 2 Mg/1 Ml Syringe 0.5 MG IV Q4H PRN for For Anxiety, EA Morphine Sulfate* (Morphine Sulfate*) 2 Mg/1 Ml Cartridge 1 MG IV Q4HR PRN for For Pain, EA Ondansetron* (Zofran*) 4 Mg/2 Ml Vial 4 MG IV Q6H PRN for Nausea & Vomiting, VIAL Oxycodone Hcl* (Oxycodone Hcl*) 5 Mg Capsule 5 MG ORAL Q6H PRN for For Pain, #30 CAP 0 Refills Polyethylene Glycol 3350* (Miralax*) 17 Gm Powd.pack 17 GM ORAL DAILY PRN for Constipation, PACKET Risperidone* (Risperdal*) 1 Mg Tablet 1 MG PO BID, TAB Sertraline Hcl* (Sertraline Hcl*) 25 Mg Tablet 25 MG ORAL DAILY, TAB Trimethoprim/Sulfamethoxazole 160/800* (Bactrim Ds Tablet*) 1 Each Tablet 1 TAB ORAL Q12HR for 7 Days, TAB Zolpidem Tartrate* (Ambien*) 5 Mg Tablet 5 MG ORAL BEDTIME PRN for Insomnia, TAB Discharge Discharge Disposition Patient was discharged to SNF/Subacute Facility(03) Discharge Diagnoses: James (Vanchtein)Ryann NP Jul 21, 2017 11:37
--- NOTE | 2017-07-21 18:01 | Discharge Summary 2 SIG ---
DATE OF ADMISSION: 07/14/2017 DATE OF DISCHARGE: 07/18/2017 REASON FOR HOSPITALIZATION: 77-year-old male with history of chronic obstructive pulmonary disease, hypothyroidism, and dementia presented with a nonhealing surgical wound on the left thigh. He was sent for evaluation for need of surgical revision. The patient reported ongoing pain. No fever, no chills. No nausea. No vomiting. No chest pain. No shortness of breath. Vital signs were stable. No leukocytosis. Venous duplex of bilateral lower extremities was negative. The patient was admitted with a nonhealing wound for further management. HOSPITAL COURSE: The patient was admitted. ID consult and Surgical consult were requested. The patient subsequently undergone CT of the pelvis, which revealed direct left inguinal hernia containing a knuckle of colon evident previously. Overlying abnormal tissues with the subcutaneous fat extending to the skin surface, which likely reflected a combination of cellulitis scar tissue and clinically described draining sinus tract. However, subcutaneous abnormality significantly smaller than on prior exam one year ago. No specific findings to suggest mesh infection were identified. Direct fat containing right inguinal hernia again was demonstrated. The patient was seen and examined at the bedside by the surgeon. CT of the abdomen and pelvis reviewed personally by Surgeon. The patient with a history of left inguinal hernia repair with mesh. Sometime after surgery, the wound was opened and drained, and since that time, it was slowly healing. Initially concern about mesh infection, however, after reviewing the CT of the scan, surgeon noted significant improvement as compared with one year before. No findings to suggest mesh infection at this time. The draining sinus tract was still present, but smaller, no abscess, but surrounding cellulitis. Given all these findings, no acute surgical intervention was necessary at this time.Surgeon recommended to continue wound care and IV antibiotics. ID closely followed the patient. Wound culture grew MRSA. Blood culture were negative. While in the hospital, the patient was on the IV antibiotics. Upon discharge, ID recommended oral Bactrim for additional six days. The patient was afebrile. Supplemetnal oxygen and pulmonary toilet were provided as needed. Aricept was continued. TSH was borderline elevated, however, at this time same dose of levothyroxine was continued and recommended to check TSH in one month. Psychiatrist seen and evaluated the patient , diagnosed the patient with acute exacerbation of paranoid schizophrenia. Psychiatric medication regimen was optimized. The patient was stable for discharge back to the facility. FINAL DIAGNOSES: 1. Infected wound with Methicillin-resistant Staphylococcus aureus. 2. Cellulitis 3. Status post left inguinal hernia repair with mesh one year ago. 4. Chronic obstructive pulmonary disease. 5. Alzheimer dementia. 6. Hypothyroidism. 7. Paranoid schizophrenia with acute exacerbation. DISCHARGE MEDICATIONS: See medication reconciliation list. DISCHARGE INSTRUCTIONS: The patient was discharged to snf facility. FOLLOWUP: Follow up with medical doctor at the facility. Anthony Miller D.O. Ryann MotleyNorth Shore University Hospitallauryn N.PTemi DR: ISIDRO JOB#: [id number] CC: KOKO
== END 2017-07-18 15:41 | DRG 863 ==
LOC: EDBD 20:32 → EDBEDREQ 20:57 → EMR 22:05 → 4E 22:08 → EDBEDREQ 23:12 → 4E 07-15 04:32
DX: T81.4XXA Infection following a procedure, initial encounter (principal); E46 Unspecified protein-calorie malnutrition; L03.818 Cellulitis of other sites; J44.9 Chronic obstructive pulmonary disease, unspecified; G30.9 Alzheimer's disease, unspecified; B95.61 Methicillin susceptible Staphylococcus aureus infection as the cause of diseases classified elsewhere; F02.80 Dementia in other diseases classified elsewhere, unspecified severity, without behavioral disturbance, psychotic disturbance, mood disturbance, and anxiety; F20.0 Paranoid schizophrenia; Y83.8 Other surgical procedures as the cause of abnormal reaction of the patient, or of later complication, without mention of misadventure at the time of the procedure; E03.9 Hypothyroidism, unspecified; Z68.24 Body mass index [BMI] 24.0-24.9, adult; I10 Essential (primary) hypertension; L89.899 Pressure ulcer of other site, unspecified stage; B95.62 Methicillin resistant Staphylococcus aureus infection as the cause of diseases classified elsewhere; F17.200 Nicotine dependence, unspecified, uncomplicated; F41.9 Anxiety disorder, unspecified
CPT/HCPCS: 36415; 72194; 80048; 80053; 80061; 80202; 82550; 83605; 84443; 85025; 87040; 87070; 87081; 87181; 87205; 93005; 93970; 97803; 99285